=== PATIENT | female | born 1955 | race Caucasian/White ===

== ENCOUNTER 2019-11-28 08:45 | Outpatient (CLI) | payer MEDICARE, SELFPAY ==
--- NOTE | 2019-11-28 08:57 | MM_ITS ---
WS: [id number] BILATERAL SCREENING DIGITAL MAMMOGRAM WITH CAD HISTORY: SCREEN COMPARISON: 11/01/2018 and 10/30/2017 Bilateral CC and MLO views submitted. Computer aided detection analyzed. Breast composition: There are scattered areas of fibroglandular density. No suspicious masses, microc alcifications or architectural distortion. Benign calcifications within each breast are stable. MM/[place] [id number] IMPRESSION: BI-RADS: 2-Benign FOLLOW UP: 1 Year Follow-up
== END 2019-11-28 08:46 | disposition home or self-care (01) ==
LOC: RADSHAW 08:51
PROVIDERS: Family Provider Family Medicine; PCP Family Medicine; Visit Provider Family Medicine
DX: Z12.31 Encounter for screening mammogram for malignant neoplasm of breast (principal)
CPT/HCPCS: 77067

== ENCOUNTER → 2019-12-13 10:09 | Outpatient (BNVA) | payer MEDICARE, SELFPAY | PROVIDERS: Family Provider Family Medicine; PCP Family Medicine; Visit Provider Otolaryngology | DX: H61.23 Impacted cerumen, bilateral (principal); H90.0 Conductive hearing loss, bilateral; R51 Headache | CPT/HCPCS: 69210; 99214 ==

== ENCOUNTER → 2019-12-19 10:40 | Outpatient (BNVA) | payer MEDICARE, SELFPAY | PROVIDERS: Family Provider Family Medicine; PCP Family Medicine; Visit Provider Otolaryngology | DX: H61.23 Impacted cerumen, bilateral (principal); H90.0 Conductive hearing loss, bilateral; R51 Headache | CPT/HCPCS: 99212; 99214 ==

== ENCOUNTER 2020-05-21 13:37 | Outpatient (CLI) | payer MEDICARE, SELFPAY ==
--- NOTE | 2020-05-21 13:43 | XR_ITS ---
WS: [id number] SCREENING DEXA SCAN [facility] CLINICAL INFORMATION: POST MENOPAUSAL OSTEO COMPARISON: 1 FINDINGS: The L1-L4 bone mineral density measures 1.299 g/cm2. This corresponds to a T score score of 1.0 and Z score of 2.3. Left femoral neck bone mineral density measures 0.938 g/cm2. This corresponds to a T score of -0.6 an d Z score of 0.5. Right femoral neck bone mineral density measures 0.857 g/cm2. This corresponds to a T score -1.2of an d Z score of -0.1. Mean femoral neck bone mineral density measures 0.898 g/cm2. This corresponds to a T score of -0.9 an d Z score of 0.2. XR/XR DEXA axial skeleton* [id number] IMPRESSION: Osteopenia in the femoral necks. Normal bone mineralization lumbar spine. Patient's FRAX calculated 10 year probability for major osteoporotic fracture i s 10.4 % and osteoporotic hip fracture is 1.6%.
== END 2020-05-21 13:38 | disposition home or self-care (01) ==
LOC: RADWPI 13:41
PROVIDERS: Family Provider Family Medicine; PCP Family Medicine; Visit Provider Nurse Practitioner Family
DX: Z78.0 Asymptomatic menopausal state (principal); M85.89 Other specified disorders of bone density and structure, multiple sites
CPT/HCPCS: 77080

== ENCOUNTER 2020-10-24 09:35 | Outpatient (CLI) | payer MEDICARE, SELFPAY ==
--- NOTE | 2020-10-24 09:50 | US_ITS ---
WS: [id number] Complete ABDOMINAL ULTRASOUND HISTORY: EPIGASTRIC PAIN COMPARISON: 04/28/2018 Liver: 16.3 cm in length. Mildly enlarged liver. Diffuse coarsened echotexture from hepatic steatosis . Surface of the liver is slightly irregular. No bile duct dilatation. Gallbladder: Prior cholecystectomy. Pancreas: Normal size and echogenicity. CBD: 0.6 cm. Right kidney: 10.5 cm x 5.9 cm x 5.0 cm. No mass, cortical thickening or hydronephrosis. Left kidney: 10.3 cm x 4.8 cm x 4.4 cm. Normal size kidney. Hypoechoic mass in the mid kidney measur es 3.3 x 3.2 x 3.2 cm. This may be a prominent pyramid or dromedary home. Not identified on the prior study. Spleen: Normal size and echogenicity. Abdominal aorta and IVC are within normal limits. No ascites. US/US abdomen complete* [id number] IMPRESSION: 1. Prior cholecystectomy. 2. Possible solid mass mid LEFT kidney measuring 3.3 x 3.2 x 3.2 cm. Recommend follow-up CT with renal mass protocol. Neoplasm needs to be excluded. 3. Mild hepatomegaly and changes suspicious for cirrhosis.
== END 2020-10-24 09:36 | disposition home or self-care (01) ==
LOC: RAD 09:44
PROVIDERS: PCP Family Medicine; Visit Provider Nurse Practitioner Family
DX: R10.13 Epigastric pain (principal); Z90.49 Acquired absence of other specified parts of digestive tract; R16.0 Hepatomegaly, not elsewhere classified
CPT/HCPCS: 76700

== ENCOUNTER 2020-11-06 08:19 | Outpatient (CLI) | payer MEDICARE, SELFPAY ==
--- NOTE | 2020-11-06 08:38 | CT_ITS ---
WS: [id number] CT ABDOMEN NON-CONTRAST PLUS CONTRAST TECHNIQUE: Noncontrast CT of the abdomen and contrast-enhanced CT of the abdomen with coronal and sag ittal reformatted images. CLINICAL INFORMATION: RENAL MASS COMPARISON: Ultrasound October 24, 2020 DLP: 1458.[address] scans at [facility] use at least one of these dose optimization techniques: automat ed exposure control; mA and/or kV adjustment per patient size (includes targeted exams where dose is matched to clinical indication); or iterative reconstruction. FINDINGS: Normal bilateral renal parenchymal enhancement. Cortical lobulation left mid kidney likely correspond s to the ultrasound findings. No solid enhancing left renal lesions. 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 No other renal lesions. Adrenal glands are normal. Diffuse fatty infiltration liver. Cholecystectomy clips. Splenic granuloma s. Normal GE junction. Lung bases are well aerated. Calcified granuloma right middle lobe. Mild fatty atrophy of the pancreas. Aortic calcification. Ankylosis lumbar spine. Slight anterolisthesis L4 on L5. CT/CT abdomen wo/w con [id number] IMPRESSION: 1. Normal renal parenchymal enhancement. 2. Lobulation left mid kidney likely corresponds to the findings in the recent ultrasound. This appears to represent normal renal parenchyma. No suspicious l esions. 3. Adrenal glands are normal. No hydronephrosis. 4. Diffuse fatty infiltration of the liver. 5. No other significant findings.
[2020-11-06] MEDS: iohexol 300 mg/mL 100 mL Btl IV (08:56)
== END 2020-11-06 08:20 | disposition home or self-care (01) ==
LOC: RADWPI 08:25
PROVIDERS: PCP Family Medicine; Visit Provider Nurse Practitioner Family
DX: N28.89 Other specified disorders of kidney and ureter (principal); K76.0 Fatty (change of) liver, not elsewhere classified
CPT/HCPCS: 74170; Q9967

== ENCOUNTER 2021-01-14 08:47 | Outpatient (CLI) | payer MEDICARE, SELFPAY ==
--- NOTE | 2021-01-14 08:52 | MM_ITS ---
WS: [id number] BILATERAL DIGITAL SCREENING MAMMOGRAPHY WITH CAD CLINICAL INFORMATION: SCREENING HISTORY: Screening mammogram. No current complaints. COMPARISON: November 28, 2019 TECHNIQUE: Bilateral CC and MLO views. FINDINGS: Scattered fibroglandular densities bilaterally. No suspicious focal mass, asymmetry, calcifications, or architectural distortion. No evidence of malignancy. Luc[employer] centered calcifications. MM/[place] [id number] IMPRESSION: BI-RADS: 2-Benign FOLLOW UP: 1 Year Follow-up Recommend return to annual screening mammography.
== END 2021-01-14 08:48 | disposition home or self-care (01) ==
LOC: RADSHAW 08:51
PROVIDERS: PCP Family Medicine; Visit Provider Family Medicine
DX: Z12.31 Encounter for screening mammogram for malignant neoplasm of breast (principal)
CPT/HCPCS: 77067

== ENCOUNTER 2021-07-30 07:04 | Outpatient (CLI) | payer MEDICARE, SELFPAY ==
--- NOTE | 2021-07-30 07:17 | USCV_ITS ---
Caridad Yao Age: 66 Gender: F : 1955 Exam Date: 07/30/2021 07:37 Ordering Phys: Tolu Yung MD Technologist: Iraida Mcdowell Exam Location: [facility] [place]_ Indication: BLE EDEMA HISTORY: Lower extremity edema. PROCEDURES: Venous duplex imaging was performed in bilateral lower extremities. The following venous structures were evaluated: common femoral vein, profunda vein, proximal portion of the greater saphenous vein, superficial femoral vein, and the popliteal vein. In addition, the posterior tibial and peroneal trunk were evaluated. Serial compression, augmentation maneuvers, and spectral Doppler flow evaluation were performed. FINDINGS: Normal 2-D Doppler and augmentation and compressibility throughout the lower extremity venous structures. Additional imaging through the proximal calf veins also reveals no thrombus. Limited evaluation of the greater saphenous vein is patent with no thrombus. CONCLUSIONS No DVT bilateral lower extremities. Dr. Anali Ny DO (Electronically Signed) Final Date: 30 July 2021 09:48 Amended: 30 July 2021 09:48 C
== END 2021-07-30 07:05 | disposition home or self-care (01) ==
PROVIDERS: PCP Family Medicine; Visit Provider Family Medicine
DX: R60.9 Edema, unspecified (principal)
CPT/HCPCS: 93970

== ENCOUNTER → 2021-11-26 10:44 | Outpatient (BNVA) | payer MEDICARE, SELFPAY | PROVIDERS: PCP Family Medicine; Visit Provider Family Medicine | DX: E78.5 Hyperlipidemia, unspecified (principal); E11.649 Type 2 diabetes mellitus with hypoglycemia without coma; Z79.4 Long term (current) use of insulin; I10 Essential (primary) hypertension | CPT/HCPCS: 80053; 80061; 82043; 83036; 85025 ==

== ENCOUNTER 2022-02-17 08:36 | Outpatient (CLI) | payer MEDICARE, SELFPAY ==
--- NOTE | 2022-02-17 08:46 | MM_ITS ---
WS: [id number] BILATERAL SCREENING DIGITAL BREAST TOMOSYNTHESIS MAMMOGRAM WITH CAD HISTORY: SCREENING COMPARISON: 01/14/2021, 11/28/2019 Bilateral CC and MLO views with tomosynthesis and synthetic mammography submitted. Computer aided det ection analyzed. Breast composition: There are scattered areas of fibroglandular density. No suspicious masses, microc alcifications or architectural distortion. Benign calcifications in each breast. MM/[place] [id number] IMPRESSION: BI-RADS: 2-Benign FOLLOW UP: 1 Year Follow-up
== END 2022-02-17 08:37 | disposition home or self-care (01) ==
LOC: RAD 08:39
PROVIDERS: PCP Family Medicine; Visit Provider Family Medicine
DX: Z12.31 Encounter for screening mammogram for malignant neoplasm of breast (principal)
CPT/HCPCS: 77063; 77067

== ENCOUNTER → 2022-02-25 09:17 | Outpatient (BNVA) | payer MEDICARE, SELFPAY | PROVIDERS: PCP Family Medicine; Visit Provider Family Medicine | DX: E11.649 Type 2 diabetes mellitus with hypoglycemia without coma (principal); Z79.4 Long term (current) use of insulin; J30.2 Other seasonal allergic rhinitis | CPT/HCPCS: 80053; 83036 ==

== ENCOUNTER → 2022-05-19 09:05 | Outpatient (BNVA) | payer MEDICARE, SELFPAY | PROVIDERS: PCP Family Medicine; Visit Provider Family Medicine | DX: Z00.00 Encounter for general adult medical examination without abnormal findings (principal); Z13.6 Encounter for screening for cardiovascular disorders; Z78.0 Asymptomatic menopausal state; E11.9 Type 2 diabetes mellitus without complications; I10 Essential (primary) hypertension; E78.5 Hyperlipidemia, unspecified | CPT/HCPCS: 80053; 80061; 83036; 84443; 85025 ==

== ENCOUNTER 2022-07-15 13:12 | Outpatient (CLI) | payer MEDICARE, SELFPAY ==
--- NOTE | 2022-07-15 14:00 | XR_ITS ---
WS: [id number] DEXA (DUAL ENERGY X-RAY ABSORPTIOMETRY) Bone mineral density was performed using a [employer] machine. HISTORY: post-menopausal COMPARISON: 05/21/2020 Lumbar spine BMD (L1-L4): 1.276 g/cm2 T score: 0.8 Z score: 2.2 Total hip BMD: Left: 0.910 g/cm2. T score: -0.8 Z score: 0.4 Right: 0.587 g/cm2. T score: -3.3 Z score: -2.2 10 year probability of a major osteoporotic fracture is 11.2%. Compared to the prior study from 05/21/2020. Lumbar spine bone mineral density has decreased by 1.8%. Bilateral hips bone mineral density has decreased by 3.0%. XR/XR DEXA axial skeleton* [id number] IMPRESSION: OSTEOPOROSIS based upon the WHO classification for females. Significant decrease in bone mineral density within the hips since the prior st y. No significant change in the lumbar spine.
== END 2022-07-15 13:13 | disposition home or self-care (01) ==
LOC: RAD 13:12
PROVIDERS: PCP Family Medicine; Visit Provider Family Medicine
DX: Z78.0 Asymptomatic menopausal state (principal); M81.0 Age-related osteoporosis without current pathological fracture
CPT/HCPCS: 77080

== ENCOUNTER → 2022-08-25 10:37 | Outpatient (BNVA) | payer MEDICARE, SELFPAY | PROVIDERS: PCP Family Medicine; Visit Provider Family Medicine | DX: E11.649 Type 2 diabetes mellitus with hypoglycemia without coma (principal); Z79.4 Long term (current) use of insulin; L30.4 Erythema intertrigo; Z23 Encounter for immunization | CPT/HCPCS: 83036 ==

== ENCOUNTER → 2022-10-09 13:42 | Outpatient (BNVA) | payer OTHER, SELFPAY | PROVIDERS: PCP Family Medicine; Referring Provider Family Medicine; Visit Provider Internal Medicine | DX: E11.649 Type 2 diabetes mellitus with hypoglycemia without coma (principal); Z79.4 Long term (current) use of insulin; E78.5 Hyperlipidemia, unspecified | CPT/HCPCS: 36415; 80048; 80053; 80061; 82044; 84681; 86337; 86341 ==

== ENCOUNTER → 2022-11-24 08:58 | Outpatient (BNVA) | payer OTHER, SELFPAY | PROVIDERS: PCP Family Medicine; Visit Provider Family Medicine | DX: E11.649 Type 2 diabetes mellitus with hypoglycemia without coma (principal); Z79.4 Long term (current) use of insulin | CPT/HCPCS: 83036 ==

== ENCOUNTER → 2023-05-05 14:32 | Outpatient (BNVA) | payer MEDICARE, SELFPAY | PROVIDERS: PCP Family Medicine; Visit Provider Internal Medicine | DX: E11.649 Type 2 diabetes mellitus with hypoglycemia without coma (principal); E78.5 Hyperlipidemia, unspecified; Z79.4 Long term (current) use of insulin; Z79.84 Long term (current) use of oral hypoglycemic drugs | CPT/HCPCS: 36415; 80053; 80061; 82044; 83036; 99214 ==

== ENCOUNTER 2023-05-06 09:55 | Outpatient (CLI) | payer MEDICARE, SELFPAY ==
--- NOTE | 2023-05-06 10:09 | MM_ITS ---
WS: [id number] Bilateral screening 3D tomosynthesis digital mammogram, 05/06/2023 Clinical Data: screening mammogram Comparison: 2021, 01/14/2021, 11/28/2019, 11/01/2018, 10/30/2017, 10/11/2015. Findings: The breast parenchymal pattern shows fibroglandular tissue. No spiculated masses or clustered calcifi cations are seen. There are no secondary signs of carcinoma. MM/[place] [id number] Impression: 1. Negative bilateral mammogram unchanged. 2. Recommend annual screening mammograms. BIRADS: 1-Negative FOLLOW UP: 1 Year Follow-up The CAD tool design checker was used.
== END 2023-05-06 09:56 | disposition home or self-care (01) ==
PROVIDERS: PCP Family Medicine; Visit Provider Family Medicine
DX: Z12.31 Encounter for screening mammogram for malignant neoplasm of breast (principal)
CPT/HCPCS: 77063; 77067

== ENCOUNTER 2023-07-29 09:15 | Outpatient (CLI) | payer MEDICARE, SELFPAY ==
[2023-07-29 10:31] LABS: Alanine Aminotransferase 21 U/L (0-33); Albumin Level 4.1 g/dL (3.5-5.2); Alkaline Phosphatase 116 U/L (35-105); Anion Gap 14.8 (5-19); Aspartate Amino Transferase 23 U/L (0-32); Blood Urea Nitrogen 11 mg/dL (8-23); Calcium 9.3 mg/dL (8.5-10.5); Carbon Dioxide 26 mmol/L (22-29); Chloride 100 mmol/L (98-107); Chol HDL Ratio 1.91 mg/dL (0.0-4.40); Cholesterol 88 mg/dL (0-200); Globulin 2.3 g/dL (1.3-4.6); Glomerular Filtration Rate 99.1 mL/min (90-130); Glucose 232 mg/dL (65-115); HDL Cholesterol 46 mg/dL (60-100); LDL Cholesterol Calculated 30 mg/dL (50-129); LDL HDL Ratio 0.65 RATIO (0.00-3.22); Osmolality Calculated 289 mOsm/kg (285-295); Potassium 4.8 mmol/L (3.5-5.1); Sodium 136 mmol/L (136-145); Total Bilirubin 0.4 mg/dL (0.15-1.2); Total Protein 6.4 g/dL (6.6-8.7); Triglycerides 60 mg/dL (0-150)
[2023-07-29 10:56] LABS: Estmated Average Glucose 174; Hemoglobin A1C 7.7 % (4.0-6.0)
== END 2023-07-29 09:16 | disposition home or self-care (01) ==
LOC: LAB 09:18
PROVIDERS: PCP Family Medicine; Visit Provider Internal Medicine
DX: E11.649 Type 2 diabetes mellitus with hypoglycemia without coma (principal); E78.5 Hyperlipidemia, unspecified
CPT/HCPCS: 36415; 80053; 80061; 83036

== ENCOUNTER → 2023-08-06 08:17 | Outpatient (BNVA) | payer MEDICARE, SELFPAY | PROVIDERS: PCP Family Medicine; Visit Provider Internal Medicine | DX: E11.649 Type 2 diabetes mellitus with hypoglycemia without coma (principal); E78.5 Hyperlipidemia, unspecified; Z79.4 Long term (current) use of insulin; Z79.84 Long term (current) use of oral hypoglycemic drugs | CPT/HCPCS: 82044; 99214 ==

== ENCOUNTER → 2023-09-01 09:12 | Outpatient (BNVA) | payer MEDICARE, SELFPAY | PROVIDERS: PCP Family Medicine; Referring Provider Family Medicine; Visit Provider Surgery | DX: Z12.11 Encounter for screening for malignant neoplasm of colon (principal) | CPT/HCPCS: 99024; 99204 ==

== ENCOUNTER 2023-11-19 09:47 | Outpatient (CLI) | payer MEDICARE, SELFPAY ==
[2023-11-19 11:08] LABS: Alanine Aminotransferase 38 U/L (0-33); Albumin Level 3.9 g/dL (3.5-5.2); Alkaline Phosphatase 140 U/L (35-105); Aspartate Amino Transferase 31 U/L (0-32); Blood Urea Nitrogen 13 mg/dL (8-23); Calcium 8.6 mg/dL (8.5-10.5); Carbon Dioxide 28 mmol/L (22-29); Chloride 101 mmol/L (98-107); Chol HDL Ratio 2.34 mg/dL (0.0-4.40); Cholesterol 110 mg/dL (0-200); Globulin 2.6 g/dL (1.3-4.6); Glomerular Filtration Rate 99.1 mL/min (90-130); Glucose 216 mg/dL (65-115); HDL Cholesterol 47 mg/dL (60-100); LDL Cholesterol Calculated 54 mg/dL (50-129); LDL HDL Ratio 1.15 RATIO (0.00-3.22); Osmolality Calculated 293 mOsm/kg (285-295); Sodium 138 mmol/L (136-145); Total Bilirubin 0.5 mg/dL (0.15-1.2); Total Protein 6.5 g/dL (6.6-8.7); Triglycerides 47 mg/dL (0-150)
[2023-11-19 11:14] LABS: Estmated Average Glucose 214; Hemoglobin A1C 9.1 % (4.0-6.0)
[2023-11-19 11:18] LABS: Creatinine Urine, Random 26 mg/dL (28-217); Microalbum Creatinine Ratio Ur 38 mg/dL (0-20); Microalbumin Random Urine 1 ug/dL (0-20)
== END 2023-11-19 09:48 | disposition home or self-care (01) ==
LOC: LAB 09:51
PROVIDERS: PCP Family Medicine; Visit Provider Internal Medicine
DX: E11.649 Type 2 diabetes mellitus with hypoglycemia without coma (principal); Z79.4 Long term (current) use of insulin; E78.5 Hyperlipidemia, unspecified
CPT/HCPCS: 36415; 80053; 80061; 82044; 83036

== ENCOUNTER → 2023-12-02 08:50 | Outpatient (BNVA) | payer MEDICARE, SELFPAY | PROVIDERS: PCP Family Medicine; Visit Provider Internal Medicine | DX: E11.649 Type 2 diabetes mellitus with hypoglycemia without coma (principal); Z79.4 Long term (current) use of insulin; E78.5 Hyperlipidemia, unspecified; Z09 Encounter for follow-up examination after completed treatment for conditions other than malignant neoplasm | CPT/HCPCS: 99213; 99214 ==

== ENCOUNTER → 2023-12-22 09:46 | Outpatient (BNVA) | payer MEDICARE, SELFPAY | PROVIDERS: PCP Family Medicine; Visit Provider Family Medicine | DX: I10 Essential (primary) hypertension (principal); Z13.6 Encounter for screening for cardiovascular disorders | CPT/HCPCS: 85025 ==

== ENCOUNTER → 2023-12-29 08:35 | Outpatient (BNVA) | payer MEDICARE, SELFPAY | PROVIDERS: PCP Family Medicine; Visit Provider Family Medicine | DX: R79.89 Other specified abnormal findings of blood chemistry (principal) | CPT/HCPCS: 83550 ==

== ENCOUNTER → 2023-12-30 | Outpatient (BNVA) | payer MEDICARE, SELFPAY | PROVIDERS: PCP Family Medicine; Visit Provider Family Medicine | DX: R79.89 Other specified abnormal findings of blood chemistry (principal) | CPT/HCPCS: 82728 ==

== ENCOUNTER 2024-01-27 09:21 | Outpatient (RCR) | payer MEDICARE, SELFPAY | END 2024-02-02 23:59 | disposition home or self-care (01) | LOC: SPT 09:21 | PROVIDERS: PCP Family Medicine; Visit Provider Family Medicine | DX: R26.89 Other abnormalities of gait and mobility (principal); M62.81 Muscle weakness (generalized) | CPT/HCPCS: 97161 ==

== ENCOUNTER 2024-02-03 10:05 | Outpatient (RCR) | payer MEDICARE, SELFPAY | END 2024-03-04 23:59 | disposition home or self-care (01) | LOC: SPT 10:05 | PROVIDERS: PCP Family Medicine; Visit Provider Family Medicine | DX: R26.89 Other abnormalities of gait and mobility (principal) | CPT/HCPCS: 97110 ==

== ENCOUNTER 2024-02-25 10:23 | Outpatient (CLI) | payer MEDICARE, SELFPAY | END 2024-02-25 10:24 | disposition home or self-care (01) | LOC: LAB 06-16 10:10 | PROVIDERS: PCP Family Medicine; Visit Provider Family Medicine | DX: E11.649 Type 2 diabetes mellitus with hypoglycemia without coma (principal); E78.5 Hyperlipidemia, unspecified; Z79.4 Long term (current) use of insulin | CPT/HCPCS: 80053; 80061; 82044; 83036 ==

== ENCOUNTER → 2024-03-01 08:58 | Outpatient (BNVA) | payer MEDICARE, SELFPAY | PROVIDERS: PCP Family Medicine; Visit Provider Internal Medicine | DX: E11.649 Type 2 diabetes mellitus with hypoglycemia without coma (principal); Z79.4 Long term (current) use of insulin; E78.5 Hyperlipidemia, unspecified | CPT/HCPCS: 99215 ==

== ENCOUNTER 2024-03-05 06:00 | Outpatient (RCR) | payer MEDICARE, SELFPAY | END 2024-04-03 23:59 | disposition home or self-care (01) | LOC: SPT 06:00 | PROVIDERS: PCP Family Medicine; Visit Provider Family Medicine | DX: R26.89 Other abnormalities of gait and mobility (principal); M62.81 Muscle weakness (generalized) | CPT/HCPCS: 97110 ==

== ENCOUNTER 2024-04-04 06:00 | Outpatient (RCR) | payer MEDICARE, SELFPAY | END 2024-04-06 23:59 | disposition home or self-care (01) | LOC: SPT 06:00 | PROVIDERS: PCP Family Medicine; Visit Provider Family Medicine | DX: R26.89 Other abnormalities of gait and mobility (principal) | CPT/HCPCS: 97110 ==

== ENCOUNTER → 2024-04-19 10:55 | Outpatient (BNVA) | payer MEDICARE, SELFPAY | PROVIDERS: PCP Family Medicine; Visit Provider Podiatrist Foot & Ankle Surgery | DX: E11.8 Type 2 diabetes mellitus with unspecified complications (principal); Z79.4 Long term (current) use of insulin; L60.8 Other nail disorders | CPT/HCPCS: 99203 ==

== ENCOUNTER 2024-05-26 09:24 | Outpatient (CLI) | payer MEDICARE, SELFPAY ==
[2024-05-26 10:16] LABS: Alanine Aminotransferase 28 U/L (0-33); Albumin Level 4.2 g/dL (3.5-5.2); Alkaline Phosphatase 120 U/L (35-105); Anion Gap 13.3 (5-19); Aspartate Amino Transferase 24 U/L (0-32); Blood Urea Nitrogen 25 mg/dL (8-23); Calcium 9.1 mg/dL (8.5-10.5); Carbon Dioxide 30 mmol/L (22-29); Chloride 101 mmol/L (98-107); Chol HDL Ratio 2.26 mg/dL (0.0-4.40); Cholesterol 106 mg/dL (0-200); Globulin 2.4 g/dL (1.3-4.6); Glomerular Filtration Rate 98.8 mL/min (90-130); Glucose 212 mg/dL (65-115); HDL Cholesterol 47 mg/dL (60-100); LDL Cholesterol Calculated 43 mg/dL (50-129); LDL HDL Ratio 0.91 RATIO (0.00-3.22); Osmolality Calculated 301 mOsm/kg (285-295); Potassium 4.3 mmol/L (3.5-5.1); Sodium 140 mmol/L (136-145); Total Bilirubin 0.5 mg/dL (0.15-1.2); Total Protein 6.6 g/dL (6.6-8.7); Triglycerides 79 mg/dL (0-150)
[2024-05-26 10:20] LABS: Creatinine Urine, Random 43 mg/dL (28-217); Microalbum Creatinine Ratio Ur 23 mg/dL (0-20); Microalbumin Random Urine 1 ug/dL (0-20)
[2024-05-26 10:22] LABS: Estmated Average Glucose 180; Hemoglobin A1C 7.9 % (4.0-6.0)
== END 2024-05-26 09:25 | disposition home or self-care (01) ==
LOC: LAB 09:31
PROVIDERS: Absent Provider Internal Medicine; PCP Family Medicine; Visit Provider Internal Medicine
DX: Z79.4 Long term (current) use of insulin (principal); E11.649 Type 2 diabetes mellitus with hypoglycemia without coma; E78.5 Hyperlipidemia, unspecified
CPT/HCPCS: 36415; 80053; 80061; 82044; 83036

== ENCOUNTER → 2024-06-01 09:44 | Outpatient (BNVA) | payer MEDICARE, SELFPAY | PROVIDERS: PCP Family Medicine; Visit Provider Internal Medicine | DX: E11.649 Type 2 diabetes mellitus with hypoglycemia without coma (principal); Z79.4 Long term (current) use of insulin; E78.5 Hyperlipidemia, unspecified; Z79.84 Long term (current) use of oral hypoglycemic drugs | CPT/HCPCS: 99214 ==

== ENCOUNTER 2024-06-05 06:00 | Outpatient (RCR) | payer MEDICARE, SELFPAY | END 2024-07-04 23:59 | disposition home or self-care (01) | LOC: SPT 06:00 | PROVIDERS: PCP Family Medicine; Visit Provider Family Medicine | DX: R26.89 Other abnormalities of gait and mobility (principal) | CPT/HCPCS: 97110; 97112; 97161 ==

== ENCOUNTER 2024-07-05 06:00 | Outpatient (RCR) | payer MEDICARE, SELFPAY | END 2024-08-04 23:59 | disposition home or self-care (01) | LOC: SPT 06:00 | PROVIDERS: PCP Family Medicine; Visit Provider Family Medicine | DX: R26.89 Other abnormalities of gait and mobility (principal) | CPT/HCPCS: 97110; 97112; 97164 ==

== ENCOUNTER → 2024-07-27 11:50 | Outpatient (BNVA) | payer MEDICARE, SELFPAY | PROVIDERS: PCP Family Medicine; Visit Provider Family Medicine | DX: R60.0 Localized edema (principal) | CPT/HCPCS: 80053 ==

== ENCOUNTER 2024-08-05 06:00 | Outpatient (RCR) | payer MEDICARE, SELFPAY | END 2024-08-26 23:59 | disposition home or self-care (01) | LOC: SPT 06:00 | PROVIDERS: PCP Family Medicine; Visit Provider Family Medicine | DX: R26.89 Other abnormalities of gait and mobility (principal) | CPT/HCPCS: 97110; 97116 ==

== ENCOUNTER → 2024-08-24 13:10 | Outpatient (BNVA) | payer MEDICARE, SELFPAY | PROVIDERS: PCP Family Medicine; Visit Provider Podiatrist Foot & Ankle Surgery | DX: L60.3 Nail dystrophy (principal); G62.9 Polyneuropathy, unspecified; L84 Corns and callosities; E11.42 Type 2 diabetes mellitus with diabetic polyneuropathy; Z79.4 Long term (current) use of insulin | CPT/HCPCS: 11056; 11721 ==

== ENCOUNTER 2024-09-26 10:50 | Outpatient (CLI) | payer MEDICARE, SELFPAY ==
[2024-09-26 11:32] LABS: Estmated Average Glucose 157; Hemoglobin A1C 7.1 % (4.0-6.0)
[2024-09-26 11:38] LABS: Alanine Aminotransferase 41 U/L (0-33); Albumin Level 3.7 g/dL (3.5-5.2); Alkaline Phosphatase 109 U/L (35-105); Anion Gap 10.3 (5-19); Aspartate Amino Transferase 43 U/L (0-32); Blood Urea Nitrogen 12 mg/dL (8-23); Calcium 8.6 mg/dL (8.5-10.5); Carbon Dioxide 30 mmol/L (22-29); Chloride 107 mmol/L (98-107); Chol HDL Ratio 2.19 mg/dL (0.0-4.40); Cholesterol 94 mg/dL (0-200); Globulin 2.4 g/dL (1.3-4.6); Glomerular Filtration Rate 98.8 mL/min (90-130); Glucose 175 mg/dL (65-115); HDL Cholesterol 43 mg/dL (60-100); LDL Cholesterol Calculated 32 mg/dL (50-129); LDL HDL Ratio 0.74 RATIO (0.00-3.22); Osmolality Calculated 302 mOsm/kg (285-295); Potassium 3.3 mmol/L (3.5-5.1); Sodium 144 mmol/L (136-145); Total Bilirubin 0.4 mg/dL (0.15-1.2); Total Protein 6.1 g/dL (6.6-8.7); Triglycerides 94 mg/dL (0-150)
[2024-09-26 11:48] LABS: Creatinine Urine, Random 100 mg/dL (28-217); Microalbum Creatinine Ratio Ur 20 mg/dL (0-20); Microalbumin Random Urine 2 ug/dL (0-20)
[2024-09-27 09:34] LABS: C-Peptide 1.26 ng/mL (0.80-3.85)
== END 2024-09-26 10:51 | disposition home or self-care (01) ==
LOC: LAB 10:51
PROVIDERS: PCP Family Medicine; Visit Provider Internal Medicine
DX: E11.649 Type 2 diabetes mellitus with hypoglycemia without coma (principal); Z79.4 Long term (current) use of insulin; E78.5 Hyperlipidemia, unspecified
CPT/HCPCS: 36415; 80053; 80061; 82044; 83036; 84681

== ENCOUNTER → 2024-10-13 12:22 | Outpatient (BNVA) | payer MEDICARE, SELFPAY | PROVIDERS: PCP Family Medicine; Visit Provider Internal Medicine | DX: E11.649 Type 2 diabetes mellitus with hypoglycemia without coma (principal); Z79.4 Long term (current) use of insulin; E78.5 Hyperlipidemia, unspecified | CPT/HCPCS: 99214 ==

== ENCOUNTER → 2024-10-25 12:42 | Outpatient (BNVA) | payer MEDICARE, SELFPAY | PROVIDERS: PCP Family Medicine; Visit Provider Podiatrist Foot & Ankle Surgery | DX: L60.3 Nail dystrophy (principal); G62.9 Polyneuropathy, unspecified; L84 Corns and callosities; E11.42 Type 2 diabetes mellitus with diabetic polyneuropathy; E11.621 Type 2 diabetes mellitus with foot ulcer; L97.522 Non-pressure chronic ulcer of other part of left foot with fat layer exposed; Z79.4 Long term (current) use of insulin | CPT/HCPCS: 11056; 11721; 99213 ==

== ENCOUNTER → 2024-10-27 11:20 | Outpatient (BNVA) | payer MEDICARE, SELFPAY | PROVIDERS: PCP Family Medicine; Visit Provider Family Medicine | DX: D50.9 Iron deficiency anemia, unspecified (principal); F33.42 Major depressive disorder, recurrent, in full remission; I10 Essential (primary) hypertension; E78.5 Hyperlipidemia, unspecified; E11.9 Type 2 diabetes mellitus without complications; R26.81 Unsteadiness on feet; R60.0 Localized edema; I87.2 Venous insufficiency (chronic) (peripheral); E87.6 Hypokalemia | CPT/HCPCS: 82728; 83550; 85025 ==

== ENCOUNTER → 2024-11-02 13:21 | Outpatient (BNVA) | payer MEDICARE, SELFPAY | PROVIDERS: PCP Family Medicine; Visit Provider Podiatrist Foot & Ankle Surgery | DX: I73.9 Peripheral vascular disease, unspecified (principal); R60.0 Localized edema; E11.8 Type 2 diabetes mellitus with unspecified complications; L60.3 Nail dystrophy; E11.9 Type 2 diabetes mellitus without complications; G62.9 Polyneuropathy, unspecified; L84 Corns and callosities; E11.621 Type 2 diabetes mellitus with foot ulcer; L97.502 Non-pressure chronic ulcer of other part of unspecified foot with fat layer exposed; E11.42 Type 2 diabetes mellitus with diabetic polyneuropathy; L97.522 Non-pressure chronic ulcer of other part of left foot with fat layer exposed; Z79.4 Long term (current) use of insulin | CPT/HCPCS: 99213 ==

== ENCOUNTER → 2024-11-14 12:06 | Outpatient (BNVA) | payer MEDICARE, SELFPAY | PROVIDERS: PCP Family Medicine; Visit Provider Podiatrist Foot & Ankle Surgery | DX: M20.42 Other hammer toe(s) (acquired), left foot (principal); L60.3 Nail dystrophy; G62.9 Polyneuropathy, unspecified; L84 Corns and callosities; E11.42 Type 2 diabetes mellitus with diabetic polyneuropathy; E11.621 Type 2 diabetes mellitus with foot ulcer; L97.522 Non-pressure chronic ulcer of other part of left foot with fat layer exposed; Z79.4 Long term (current) use of insulin | CPT/HCPCS: 28011 ==

== ENCOUNTER → 2024-11-17 15:40 | Outpatient (BNVA) | payer MEDICARE, SELFPAY | PROVIDERS: PCP Family Medicine; Visit Provider Podiatrist Foot & Ankle Surgery | DX: M20.42 Other hammer toe(s) (acquired), left foot (principal); L60.3 Nail dystrophy; G62.9 Polyneuropathy, unspecified; L84 Corns and callosities; E11.42 Type 2 diabetes mellitus with diabetic polyneuropathy; Z79.4 Long term (current) use of insulin | CPT/HCPCS: 28011 ==

== ENCOUNTER 2024-11-20 12:06 | Observation (INO) | payer MEDICARE, SELFPAY ==
[2024-11-20] VITALS (13 sets, daily range): BP systolic 122–153; BP diastolic 58–100; PULSE 77–86; RESP 13–19; TEMP 36.8; O2SAT 96–100; BMI 26.7; BMI 27.3
--- NOTE | 2024-11-20 13:27 | CTR_ITS ---
PROCEDURE INFORMATION: Exam: CT Cervical Spine Without Contrast Exam date and time: 11/20/2024 2:14 PM Age: 69 years old Clinical indication: Injury or trauma; Fall; Blunt trauma TECHNIQUE: Imaging protocol: Computed tomography of the cervical spine without contrast. Radiation optimization: All CT scans at this facility use at least one of these dose optimization techniques: automated exposure control; mA and/or kV adjustment per patient size (includes targeted exams where dose is matched to clinical indication); or iterative reconstruction. COMPARISON: CT head wo con* [id number] 11/20/2024 2:14 PM RADIATION DOSE METRICS: Total DLP (mGy-cm): 214.5 FINDINGS: Bones: CPPD changes around the dens. There are ossific densities in the ligamentum nuchae, consistent with remote trauma. Demineralization of the visualized bones, limiting sensitivity for nondisplaced fractures. Mild anterolisthesis of C6 over C7. The cervical spine demonstrates mild degenerative changes at multiple levels. No compression deformity. No acute fracture. Lungs: Lung apices are normal. Thyroid: Calcified left thyroid nodule measuring 2 mm. Vasculature: Calcified atheromas of the visualized arteries. Soft tissues: Unremarkable. CT/CT cervical spin wo con* [id number] IMPRESSION: No acute posttraumatic changes in the cervical spine. COMMENTS: Consistent with the [employer]'s Incidental Findings Committee white paper (J Am Xu Radiol 2015): In patients aged 35 years and older with an incidental thyroid nodule equal to or greater than 1.[address], MRI or extrathyroidal US, further evaluation with dedicated thyroid US is recommended for patients with normal life expectancy and without comorbidities. For smaller nodules without suspicious features, no further evaluation or follow up is recommended.
--- NOTE | 2024-11-20 13:27 | CTR_ITS ---
PROCEDURE INFORMATION: Exam: CT Head Without Contrast Exam date and time: 11/20/2024 2:14 PM Age: 69 years old Clinical indication: Injury or trauma; Fall; Blunt trauma (contusions or hematomas) TECHNIQUE: Imaging protocol: Computed tomography of the head without contrast. Radiation optimization: All CT scans at this facility use at least one of these dose optimization techniques: automated exposure control; mA and/or kV adjustment per patient size (includes targeted exams where dose is matched to clinical indication); or iterative reconstruction. COMPARISON: CT cervical spin wo con* [id number] 11/20/2024 2:14 PM RADIATION DOSE METRICS: Total DLP (mGy-cm): 1174.2 FINDINGS: Brain: Normal. No hemorrhage. Unremarkable white matter. No mass effect. Cerebral ventricles: No ventriculomegaly. Paranasal sinuses: Visualized sinuses are unremarkable. No fluid levels. Mastoid air cells: Visualized mastoid air cells are well aerated. Orbital cavities: Post bilateral cataract surgery. Bones: Unremarkable. No acute fracture. Soft tissues: Unremarkable. CT/CT head wo con* [id number] IMPRESSION: No large territorial infarct or intracranial bleed.
--- NOTE | 2024-11-20 13:27 | XRR_ITS ---
PROCEDURE INFORMATION: Exam: XR Chest Exam date and time: 11/20/2024 2:26 PM Age: 69 years old Clinical indication: Other: Dizziness, gen weakness TECHNIQUE: Imaging protocol: Radiologic exam of the chest. Views: 2 views. COMPARISON: CT chest wo con [id number] 09/06/2019 1:40 PM FINDINGS: Lungs: Calcified granulomas in the right lower lung zone. There is no evidence of focal pulmonary consolidation. Pleural spaces: Unremarkable. No pleural effusion. No pneumothorax. Heart/Mediastinum: Unremarkable. No cardiomegaly. Bones/joints: Calcifications surrounding the left humeral head suggestive of chondrocalcinosis. The thoracic spine demonstrates mild degenerative changes at multiple levels. XR/XR chest 2V* [id number] IMPRESSION: No acute cardiopulmonary process.
--- NOTE | 2024-11-20 13:29 | ECG_ITS ---
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 Measurements Intervals [place] Rate: 83 P: 76 MT: 166 QRS: 40 QRSD: 83 T: 70 QT: 374 QTc: 441 Interpretive Statements SINUS RHYTHM NONSPECIFIC ST & T-WAVE ABNORMALITY No previous ECG available for comparison Electronically Signed On 11-20-2024 18:48:39 PHONE ENGINEER by Shi Johnson M.D. [email or web address]
--- NOTE | 2024-11-20 13:58 | W.ED.NAVMDI ---
HPI - Nausea/Vomiting/Diarrhea General: Chief complaint: Nausea/Vomiting/Diarrhea Stated complaint: Dizzy, Weak Time Seen by Provider: 11/20/24 13:01 History of Present Illness: Patient is a 69-year-old female that presents to the emergency department with generalized weakness, dizziness, nausea vomiting diarrhea. Patient reports she has had diarrhea for the last 2 months. She describes it as black and profuse. Patient reports some abdominal pain. She has had numerous falls in recent weeks. She has been seen by primary care couple times. Despite this patient's decline progresses. She denies chest pain or shortness of breath She denies fever or chills. She reports abdominal discomfort, nausea vomiting and diarrhea. Patient is unsure if she struck her head during her last fall. Her reports that she tripped over firewood causing her to fall. Associated nausea: Yes Associated symtoms: Reports bloating, fatigue, malaise and nausea; Denies chest pain, diaphoresis, dizziness or palpitations Related Data Home Medications ?Medication ?Instructions ?Recorded ?Confirmed ferrous gluconate 236 mg (27 mg 236 mg PO DAILY 07/27/24 11/20/24 iron) tablet acarbose 100 mg tablet 100 mg PO TID 11/20/24 11/20/24 alendronate 70 mg tablet 70 mg PO Q7D 11/20/24 11/20/24 atorvastatin 80 mg tablet 80 mg PO BEDTIME 11/20/24 11/20/24 glipizide 5 mg tablet 5 mg PO TID PRN bs 11/20/24 11/20/24 insulin glargine 100 unit/mL (3 See Rx Instructions .Route .COMPLEX 11/20/24 11/20/24 mL) subcutaneous pen (Lantus Solostar U-100 Insulin) vitamin A-vitamin C-vit E-min 1 tab PO DAILY 11/20/24 11/20/24 tablet (Ocutabs tablet) Previous Rx's ?Medication ?Instructions ?Recorded flash glucose scanning reader #9 ea 01/09/23 (FreeStyle Jam 2 Brandon) potassium chloride 10 mEq 10 meq PO DAILY #90 tabs 07/28/24 tablet,extended release torsemide 20 mg tablet 20 mg PO QAM #90 tabs 07/28/24 Diabetic Shoes #1 ea 08/24/24 pantoprazole 40 mg tablet,delayed 40 mg PO DAILY #90 tabs 09/09/24 release lisinopril 10 mg tablet 10 mg PO DAILY #60 tabs 09/23/24 bupropion HCl 150 mg 24 hr tablet, 150 mg PO QAM #90 tabs 09/27/24 extended release (Wellbutrin XL) flash glucose sensor (FreeStyle #3 ea 11/07/24 Jam 2 Sensor kit) Allergies Allergy/AdvReac Type Severity Reaction Status Date / Time No Known Allergies Allergy Verified 11/17/24 15:53 Review of Systems Const: Reports: change in appetite, fatigue and malaise; Denies: fever(s), chills, body aches or diaphoresis Eyes: Denies: blurry vision or blind spots Card: Reports: edema, swelling of feet/ankles and lightheadedness; Denies: chest pain, palpitations or irregular heart rhythm Resp: Denies: dyspnea or productive cough GI: Reports: nausea, vomiting, diarrhea, bloating, GI cramping, change in bowel habits and melena; Denies: hematemesis : Denies: flank pain or difficulty voiding Musc: Reports: extremity pain (Toe pain, right arm pain) Skin/Breast: Reports: erythema and other (Wounds in different stages of healing) Neuro: Denies: dizziness, Slurred speech present or difficulty communicating thoughts Jordan/Lymph: Denies: easy bruising or easy bleeding PFSH ED PFSH: Medical History PRASAD (iron deficiency anemia) Venous stasis dermatitis Osteoporosis GERD (gastroesophageal reflux disease) Osteoarthritis Depression Dyslipidemia Type II diabetes mellitus with hypoglycemia HTN (hypertension) Facial pain Hearing loss Cerumen impaction Surgical History H/O colonoscopy History of hysterectomy H/O knee surgery Hx laparoscopic cholecystectomy H/O foot surgery H/O eye surgery Bilateral cataracts Family History Father Cancer Mother Cancer Other Diabetes Social History Smoking and tobacco/nicotine status: former use of tobacco/nicotine Quit status (tobacco/nicotine): has quit using Year quit tobacco: 2014 Alcohol intake: current Alcohol type: beer Physical Exam Const: COMMON NORMALS: no acute distress, patient oriented x3 and alert GENERAL APPEARANCE: cooperative ORIENTATION/CONSCIOUSNESS: Yes awake, Yes oriented to person, Yes oriented to place and Yes oriented to time HENMT: COMMON NORMALS: normocephalic and atraumatic HEAD & SCALP: normocephalic and atraumatic FACE & SINUS: normal facial exam MOUTH: Normal oral and palatal mucosa present Eye: COMMON NORMALS: Equal, round and reactive pupils present, EOMs intact bilaterally, conjunctivae normal and no scleral icterus GENERAL EYE: appearance normal, both eyes and all related structures ALIGNMENT: Yes alignment normal PERIORBITAL: periorbital findings normal CONJUNCTIVA: Yes conjunctivae normal PUPIL: Yes Equal, round and reactive pupils present Neck/C-Spine: COMMON NORMALS: full ROM GENERAL: Yes normal visual inspection Lymph: LYMPHATIC: no lymphadenopathy noted Chest: COMMONS NORMALS: normal inspection of the chest Breast/axilla inspection: Yes no chest deformity, asymmetry, normal contours, no nodules, masses, tenderness Resp: COMMON NORMALS: normal respiratory effort, No retractions, No use of accessory muscles and clear to auscultation bilaterally EFFORT & INSPECTION: Yes able to speak in complete sentences and Yes symmetric chest movement AUSCULTATION: clear to auscultation bilaterally Cardio: COMMON NORMALS: regular rate, regular rhythm and Peripheral pulses 2+ throughout RATE: regular rate RHYTHM: regular rhythm PERIPHERAL PULSES: Peripheral pulses 2+ throughout GI: COMMON NORMALS: Normal to inspection, nondistended, normoactive bowel sounds present, Soft to palpation, non-tender and No hepatosplenomegaly present INSPECTION: Yes normal to inspection AUSCULTATION: Yes normoactive bowel sounds PALPATION: Yes Soft to palpation and Yes No hepatosplenomegaly present RECTAL EXAM: deferred Extremity: COMMON NORMALS: normal to inspection GENERAL: Yes normal exam except as noted Neuro: COMMON NORMALS: patient oriented x3 SENSORIUM/ORIENTATION: Yes alert, Yes oriented to person, Yes oriented to place and Yes oriented to time CRANIAL NERVES: Yes CN normal except as noted Psych: COMMON NORMALS: mental status grossly normal, Normal thought process present, cooperative, activity/motor behavior normal, denies homicidal ideation and denies suicidal ideation THOUGHT PROCESS: Normal thought process present Skin: COMMON NORMALS: turgor normal SKIN IMAGES (FEMALE):  1. Abrasions 2. Fungal nail and wound to the right great toe 3. Fungal nail and wound to the third toe 4. Bruise 5. Fungal infection to the underside of pannus GENERAL SKIN EXAM: turgor normal Course Vital Signs: Vital signs: Vital Signs Temperature 98.3 F 11/20/24 12:24 Pulse Rate 77 11/20/24 15:30 Respiratory Rate 16 11/20/24 15:30 Blood Pressure 125/63 11/20/24 15:30 Pulse Oximetry 97 11/20/24 15:30 Oxygen Delivery Me thod Room Air 11/20/24 12:24 MDM - Nausea/Vomiting/Diarrhea Medical Decision Making Caridad is a 69-year-old female that presents to the emergency department with generalized weakness, activity intolerance, and multiple falls over the last 2 months. Patient's is at bedside; he reports over the last 2 months while she has had this chronic diarrhea, he has seen her decline further and further. Today she was unable to get up and transfer to the car unassisted. Is concerned that this will continue to worsen. Here in the emergency department she underwent diagnostic and laboratory evaluation. Diagnostic evaluation included a chest x-ray, a right forearm x-ray, a CT head and CT cervical spine. All diagnostic imaging was largely unremarkable. There are no new acute pathologies. Laboratory evaluation included a CBC, CMP, lactate, urinalysis, troponin series and BNP. The CBC reveals no leukocytosis or significant anemia. Hemoglobin is 11 with a hematocrit of 33. Her chemistry panel reveals that she has hypokalemia and this was treated. Lactic acid was within normal limits. Her renal and liver function were within normal limits. Her glucose was 168. Her BNP was 1000 which is mildly elevated but. She has no crackles. She does have some edema in bilateral lower extremities. Her troponin was 39 initially with a 2-hour delta of 35. Her EKG was originally completed at 1340 and revealed a sinus rhythm without ectopy ST elevation or abnormal T wave inversion there was a bit of artifact on it due to patient's anxiety and shaking/tremors. Follow-up EKG was performed at 1532. This reveals a sinus rhythm with a ventricular rate of 76 beats a minute. There is no ectopy, ST elevation or abnormal T wave inversion. Patient denies ever having chest pain or shortness of breath. She did have some dizziness but that seems to have improved with some. She does have diarrhea and had 2 episodes. Unfortunately we have not been able to get a specimen as the stool was discarded. A straight cath was performed and we did get a urinalysis. Urinalysis reveals 4+ bacteria, greater than 100 white blood cells and 2+ leukoesterase with nitrates. She was treated with cephalexin. I did review case with Dr. Torres and ultimately discussed with the hospitalist, Dr Murphy. Patient is going to be admitted for observation and further evaluation. Orders placed for admission Lab Data 11/20/24 13:44 11/20/24 13:44 Radiology Impressions Cervical Spine CT 11/20/24 13:27 IMPRESSION: No acute posttraumatic changes in the cervical spine. COMMENTS: Consistent with the [employer]'s Incidental Findings Committee white paper (J Am Xu Radiol 2015): In patients aged 35 years and older with an incidental thyroid nodule equal to or greater than 1.[address], MRI or extrathyroidal US, further evaluation with dedicated thyroid US is recommended for patients with normal life expectancy and without comorbidities. For smaller nodules without suspicious features, no further evaluation or follow up is recommended. Chest X-Ray 11/20/24 13:27 IMPRESSION: No acute cardiopulmonary process. Head CT 11/20/24 13:27 IMPRESSION: No large territorial infarct or intracranial bleed. Forearm X-Ray 11/20/24 14:04 IMPRESSION: No acute fracture or dislocation. Laboratory Results WBC 7.40 10^3/uL (3.29-11.43) 11/20/24 13:44 RBC 3.82 10^6/uL (3.85-5.65) L 11/20/24 13:44 Hgb 11.00 g/dL (11.27-16.99) L 11/20/24 13:44 Hct 33.5 % (36-47) L 11/20/24 13:44 MCV 87.7 fl (85-98) 11/20/24 13:44 MCH 28.8 pg (27-33) 11/20/24 13:44 MCHC 32.8 g/dL (30-55) 11/20/24 13:44 RDW 13.5 % (12.1-15.1) 11/20/24 13:44 Plt Count 234 10^3/cmm (157-399) 11/20/24 13:44 MPV 9.8 fL (7.4-10.4) 11/20/24 13:44 Neut % (Auto) 70.0 % 11/20/24 13:44 Lymph % (Auto) 19.2 % 11/20/24 13:44 Ocean % (Auto) 9.6 % 11/20/24 13:44 Eos % (Auto) 0.3 % 11/20/24 13:44 Baso % (Auto) 0.5 % 11/20/24 13:44 Neut # (Auto) 5.18 10^3/uL (1.8-7.7) 11/20/24 13:44 Lymph # (Auto) 1.4 10^3/uL (0.8-4.8) 11/20/24 13:44 Ocean # (Auto) 0.7 10^3/uL (0.2-0.9) 11/20/24 13:44 Eos # (Auto) 0.0 10^3/uL (0.0-0.8) 11/20/24 13:44 Baso # (Auto) 0.0 10^3/uL (0.0-0.1) 11/20/24 13:44 Nucleated RBC % (auto) 0 % 11/20/24 13:44 Nucleated RBCs # 0.0 /100WBC 11/20/24 13:44 Sodium 142 mmol/L (136-145) 11/20/24 13:44 Potassium 3.0 mmol/L (3.5-5.1) L 11/20/24 13:44 Chloride 101 mmol/L (98-107) 11/20/24 13:44 Carbon Dioxide 30 mmol/L (22-29) H 11/20/24 13:44 Anion Gap 14.0 (5-19) 11/20/24 13:44 BUN 9 mg/dL (8-23) 11/20/24 13:44 Creatinine 0.5 mg/dL (0.5-0.9) 11/20/24 13:44 GFR Calculation 122.0 mL/min (90-130) 11/20/24 13:44 Glucose 168 mg/dL (65-115) H 11/20/24 13:44 POC Glucose 92 mg/dL (70-110) 11/20/24 15:39 Calculated Osmolality 297 mOsm/kg (285-295) H 11/20/24 13:44 Lactic Acid 1.0 mmol/L (0.5-2.2) 11/20/24 13:44 Calcium 9.0 mg/dL (8.5-10.5) 11/20/24 13:44 Total Bilirubin 0.4 mg/dL (0.15-1.2) 11/20/24 13:44 AST 36 U/L (0-32) H 11/20/24 13:44 ALT 30 U/L (0-33) 11/20/24 13:44 Alkaline Phosphatase 110 U/L (35-105) H 11/20/24 13:44 Troponin T Baseline 39 ng/L (0-10) H 11/20/24 13:44 Troponin T 120 Minute 33.87 ng/L (0-10) H 11/20/24 15:49 Delta Troponin T -5.13 ABS# (0-10) L 11/20/24 15:49 NT-Pro-B Natriuret Pep 1080 pg/mL (0-125) H 11/20/24 13:44 Total Protein 5.9 g/dL (6.6-8.7) L 11/20/24 13:44 Albumin 3.7 g/dL (3.5-5.2) 11/20/24 13:44 Globulin 2.2 g/dL (1.3-4.6) 11/20/24 13:44 Lipase 19 U/L (13-60) 11/20/24 13:44 Urine Color Yellow (Yellow) 11/20/24 14:59 Urine Appearance Cloudy (CLEAR) A 11/20/24 14:59 Urine pH 7.0 (5-7) 11/20/24 14:59 Ur Specific Jay 1.021 (1.005-1.030) 11/20/24 14:59 Urine Protein Trace (Negative) A 11/20/24 14:59 Urine Glucose (UA) Negative (Normal) 11/20/24 14:59 Urine Ketones Negative (Negative) 11/20/24 14:59 Urine Blood Negative (Negative) 11/20/24 14:59 Urine Nitrate Positive (Negative) A 11/20/24 14:59 Urine Bilirubin Negative (Negative) 11/20/24 14:59 Urine Urobilinogen 0.2 mg/dL (Negative) 11/20/24 14:59 Ur Leukocyte Esterase 2+ (Negative) A 11/20/24 14:59 Urine RBC 0-2 /hpf (0-2) 11/20/24 14:59 Urine WBC >100 /hpf (0-5) H 11/20/24 14:59 Ur Squamous Epith Cells 0-5 /hpf (0-5) 11/20/24 14:59 Amorphous Sediment Not Reportable 11/20/24 14:59 Urine Bacteria 4+ /hpf (NONE) H 11/20/24 14:59 Hyaline Casts 4.95 /lpf 11/20/24 14:59 Coronavirus (PCR) Negative (Negative) 11/20/24 14:50 Influenza A (PCR) Negative (Negative) 11/20/24 14:50 Influenza Type B (PCR) Negative (Negative) 11/20/24 14:50 RSV (PCR) Negative (Negative) 11/20/24 14:50 All radiology interpretation(s) finalized by discharge Discharge Plan Discharge Patient Disposition: Admitted As Inpatient Clinical Impression: Diarrhea, Acute hypokalemia, Urinary tract infection, Multiple falls, Generalized muscle weakness, Activity intolerance, Elevated troponin Condition: Stable Coding Level of Care Code ED Management Trainee for Garfield Marquez
[2024-11-20] MEDS: sodium chloride 0.9% 1,000 ML 999 ML IV (13:59)
--- NOTE | 2024-11-20 14:04 | XRR_ITS ---
PROCEDURE INFORMATION: Exam: XR Right Forearm Exam date and time: 11/20/2024 2:38 PM Age: 69 years old Clinical indication: Injury or trauma; Fall; Blunt trauma (contusions or hematomas); Arm, lower; Right; Additional info: Fall, abrasion TECHNIQUE: Imaging protocol: Radiologic exam of the right forearm. Views: 2 views. COMPARISON: No relevant prior studies available. FINDINGS: Bones/joints: Chondrocalcinosis of the elbow joint. Demineralization of the visualized bones, limiting sensitivity for nondisplaced fractures. 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 Moderate degenerative disease of the elbow joint. Soft tissues: Normal. XR/XR forearm RT 2V [id number] IMPRESSION: No acute fracture or dislocation.
[2024-11-20 14:08] LABS: Basophils % 0.5 %; Eosinophils % 0.3 %; Hematocrit 33.5 % (36-47); Lymphocytes # 1.4 10^3/uL (0.8-4.8); Lymphocytes % 19.2 %; Mean Corpuscular HGB Conc 32.8 g/dL (30-55); Mean Corpuscular Hemoglobin 28.8 pg (27-33); Mean Corpuscular Volume 87.7 fl (85-98); Mean Platelet Volume 9.8 fL (7.4-10.4); Monocytes # 0.7 10^3/uL (0.2-0.9); Monocytes % 9.6 %; Neutrophils # 5.18 10^3/uL (1.8-7.7); Nucleated Red Blood Cells % 0 %; Platelet Count 234 10^3/cmm (157-399); Red Blood Count 3.82 10^6/uL (3.85-5.65); Red Cell Distribution Width 13.5 % (12.1-15.1)
[2024-11-20 14:30] LABS: Troponin(5th) Baseline 39 ng/L (0-10)
[2024-11-20 14:39] LABS: Alanine Aminotransferase 30 U/L (0-33); Albumin Level 3.7 g/dL (3.5-5.2); Alkaline Phosphatase 110 U/L (35-105); Aspartate Amino Transferase 36 U/L (0-32); Blood Urea Nitrogen 9 mg/dL (8-23); Carbon Dioxide 30 mmol/L (22-29); Chloride 101 mmol/L (98-107); Creatinine Clr Calc Pharmacy 53.8773; Globulin 2.2 g/dL (1.3-4.6); Glucose 168 mg/dL (65-115); Lipase 19 U/L (13-60); NT Pro B Type Natriuretic Pept 1080 pg/mL (0-125); Osmolality Calculated 297 mOsm/kg (285-295); Sodium 142 mmol/L (136-145); Total Bilirubin 0.4 mg/dL (0.15-1.2); Total Protein 5.9 g/dL (6.6-8.7)
[2024-11-20 15:15] LABS: Bilirubin Urine Negative (Negative); Blood Urine Negative (Negative); Glucose Urine UA Negative (Normal); Ketones Urine Negative (Negative); Leukocyte Esterase Urine 2+ (Negative); Nitrate Urine Positive (Negative); Protein Urine Trace (Negative); Specific Gravity, Urine 1.021 (1.005-1.030); Urine Appearance Cloudy (CLEAR); Urine Color Yellow (Yellow); Urobilinogen Urine 0.2 mg/dL (Negative)
[2024-11-20 15:20] LABS: Add Urine Microscopic? YES; Bacteria Urine 4+ /hpf; Hyaline Casts Urine 4.95 /lpf; RBC Urine 0-2 /hpf (0-2); Squamous Epithelial Cell Urine 0-5 /hpf (0-5); WBC Urine >100 /hpf (0-5)
--- NOTE | 2024-11-20 15:29 | ECG_ITS ---
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 Measurements Intervals [place] Rate: 76 P: 55 MT: 160 QRS: 14 QRSD: 84 T: 67 QT: 348 QTc: 393 Interpretive Statements SINUS RHYTHM NONSPECIFIC T-WAVE ABNORMALITY Compared to ECG 11/20/2024 13:40:30 No significant changes Electronically Signed On 11-20-2024 18:51:30 [employer]CIAL [employer] by Shi Johnson M.D. [email or web address]
[2024-11-20 15:31] LABS: UA Slide Review UA Slide Review Perf
[2024-11-20 15:32] LABS: Add Urine Culture? Yes
[2024-11-20 15:42] LABS: Glucose Point of Care 92 mg/dL (70-110)
[2024-11-20 15:51] LABS: Influenza A NEGATIVE (Negative); Influenza B NEGATIVE (Negative); Respiratory Syncytial Virus Ce NEGATIVE (Negative); SARS-CoV-2 PCR NEGATIVE (Negative)
[2024-11-20 16:10] LABS: Troponin 5 2HR 33.87 ng/L (0-10)
[2024-11-20] MEDS: cephALEXin 500 mg Capsule PO (16:20)
[2024-11-20] MEDS: potassium chloride ER 20 mEq Tablet 40 MEQ PO (16:21)
[2024-11-20 16:34] LABS: Troponin 5 2HR Delta -5.13 ABS# (0-10)
--- NOTE | 2024-11-20 19:23 | PM.HP ---
Providers/Chief Complaint Admitting Physician: Carl Murphy Primary Care Provider: Kumar Machado MD Chief Complaint: Dizzy, Weak History of Present Illness 69-year-old female with past medical history significant for heart murmur, chronic bilateral lower extremity edema, diabetes mellitus,Hypertension, dyslipidemia, major depressive disorder, gastroesophageal reflux disease, osteoporosis, and chronic diarrhea for the past two months who presented to the hospital with generalized weakness.. The diarrhea started suddenly without any apparent trigger such as antibiotics. Initially, the diarrhea was associated with a lot of gas and uncertainty about whether to pass gas or have a bowel movement. The diarrhea has been worsening lately, occurring after eating, especially in the past few days. The stools are loose but not watery, and the frequency is unclear but seems to be after every meal. There is no associated abdominal bloating or cramping now. Yesterday, the diarrhea was particularly bad, with stool gushing out before making it to the bathroom. The stools have been black in color, which may be related to iron supplementation. There is no visible blood in the stools. The patient has also been experiencing increasing weakness over the past few days, with difficulty getting around. A few days ago, the patient got up from her lounger and fell against a woodpile after taking a few steps, scratching her right forearm. The patient gets lightheaded and dizzy when getting up quickly. There have been no episodes of syncope. The patient has also noted swelling and redness in the legs, which is a new development over the past week since stopping Lasix (furosemide). The patient normally wears compression socks but has not been wearing them recently. The patient takes insulin (Lantus 16 units), metformin, glipizide (50 mg as needed for high blood sugars), and lisinopril. The patient was previously on a higher dose of Lantus but has been experiencing low blood sugars in the morning before drinking coffee with cream, which causes the blood sugar to rise. The patient has lost a significant amount of weight, currently weighing 137 pounds. Has had a very poor appetite as well in the past few weeks. The patient had a colonoscopy a long time ago but has not had one recently. The patient saw their primary care provider, Dr. Benito, a couple of weeks ago, who recommended eating more toast and rice for the diarrhea. The patient also has an upcoming appointment for a venous ultrasound of the legs on the . Her laboratory workup in emergency room showed a WBC of 7.4, hemoglobin 11, hematocrit 33.5 and a platelet count of 234. Sodium 142, potassium 3.0, chloride 101, bicarb 30, BUN 9 and creatinine of 0.5. Lactic acid of 1.0. AST of 36, ALT of 30 and alkaline phosphatase of 110. ProB RADIOLOGIST DIAGNOSTIC was elevated at 1080. Troponin T baseline of 39 with a repeat after 120 minutes of 33. Urinalysis showed positive nitrites, 2+ leukocyte esterase and over 100 wbcs. Also noted 4+ bacteria. Influenza a , COVID-19 and RSV were negative.Imaging studies included a head CT which did not show any acute abnormality.CT cervical spine which was also negative. Forearm x-ray also negative.Chest x-ray did not show any acute cardiopulmonary abnormality.In ER patient was given Keflex 500 mg p.o. x1, 40 mEq of KCl and a L bolus of normal saline. Review of Systems General: Reports: 10 or more systems reviewed and unremarkable except in HPI and below Medications/Allergies Home Medications ?Medication ?Instructions ?Recorded ?Confirmed ?Last Taken ?Type flash glucose scanning reader #9 ea 01/09/23 11/20/24 Unknown Rx (MD.[employer] [place]) ferrous gluconate 236 mg (27 mg 236 mg PO DAILY 07/27/24 11/20/24 11/20/24 History iron) tablet potassium chloride 10 mEq 10 meq PO DAILY #90 tabs 07/28/24 11/20/24 11/20/24 Rx tablet,extended release torsemide 20 mg tablet 20 mg PO QAM #90 tabs 07/28/24 11/20/24 11/20/24 Rx Diabetic Shoes #1 ea 08/24/24 11/20/24 Unknown Rx pantoprazole 40 mg tablet,delayed 40 mg PO DAILY #90 tabs 09/09/24 11/20/24 11/20/24 Rx release lisinopril 10 mg tablet 10 mg PO DAILY #60 tabs 09/23/24 11/20/24 11/20/24 Rx bupropion HCl 150 mg 24 hr tablet, 150 mg PO QAM #90 tabs 09/27/24 11/20/24 11/20/24 Rx extended release (Wellbutrin XL) flash glucose sensor ([place] #3 ea 11/07/24 11/20/24 Unknown Rx Jam 2 Sensor kit) acarbose 100 mg tablet 100 mg PO TID 11/20/24 11/20/24 11/20/24 History alendronate 70 mg tablet 70 mg PO Q7D 11/20/24 11/20/24 11/14/24 History atorvastatin 80 mg tablet 80 mg PO BEDTIME 11/20/24 11/20/24 11/19/24 History glipizide 5 mg tablet 5 mg PO TID PRN bs 11/20/24 11/20/24 Unknown History insulin glargine 100 unit/mL (3 See Rx Instructions .Route .COMPLEX 11/20/24 11/20/24 11/20/24 History mL) subcutaneous pen (Lantus Solostar U-100 Insulin) vitamin A-vitamin C-vit E-min 1 tab PO DAILY 11/20/24 11/20/24 11/20/24 History tablet (Ocutabs tablet) Allergies Allergy/AdvReac Type Severity Reaction Status Date / Time No Known Allergies Allergy Verified 11/17/24 15:53 PFSH Acute PFSH: Medical History PRASAD (iron deficiency anemia) Venous stasis dermatitis Osteoporosis GERD (gastroesophageal reflux disease) Osteoarthritis Depression Dyslipidemia Type II diabetes mellitus with hypoglycemia HTN (hypertension) Facial pain Hearing loss Cerumen impaction Surgical History H/O colonoscopy History of hysterectomy H/O knee surgery Hx laparoscopic cholecystectomy H/O foot surgery H/O eye surgery Bilateral cataracts Family History Father Cancer Mother Cancer Other Diabetes Social History Smoking and tobacco/nicotine status: former use of tobacco/nicotine Quit status (tobacco/nicotine): has quit using Year quit tobacco: 2013 Alcohol intake: current Alcohol type: beer Vitals/I&O/Wt Last Vital Signs Temp 98.3 F 11/20/24 12:24 Pulse 86 11/20/24 18:13 Resp 13 02/16/25 18:00 BP 124/70 11/20/24 18:13 Pulse Ox 97 11/20/24 18:13 O2 Del Method Room Air 11/20/24 18:34 11/20/24 11/20/24 11/20/24 06:59 14:59 22:59 Intake Total 1000 / 1000 Balance 1000 / 1000 Weight last 48 hrs Weight 63.548 kg Weight 62.142 kg Physical Exam Narrative: - General: appears weak and fatigued - Cardiovascular: Regular rate rhythm - Respiratory: nonlabored respiration - Gastrointestinal: Abdomen per slightly distended, mild generalized tenderness - Genitourinary: deferred - Musculoskeletal: 2-3+ pitting edema in bilateral lower extremities, - Integumentary: Wound on right forearm from recent fall, no surrounding erythema - Neurological: moving all extremities, gait not assessed. Data 11/20/24 13:44 11/20/24 13:44 A&P Assessment and plan (1) Diarrhea: (2) Elevated troponin: (3) Acute hypokalemia: (4) Urinary tract infection: (5) Multiple falls: (6) Generalized muscle weakness: Plan Diarrhea - Chronic diarrhea for the past two months, worsening in the past few days, with loose, black stools occurring after meals. No associated abdominal pain, bloating, or visible blood in the stools. - occult blood was negative. Differential Diagnosis: 1. Iron supplementation causing black stools. 2. Malabsorptive disorder such as celiac disease or inflammatory bowel disease. Plan: 1. Obtain stool studies to evaluate for infectious causes, fat malabsorption. 2. Consider upper endoscopy and colonoscopy if symptoms persist or worsen. Weakness and Falls - Increasing weakness and falls over the past few days, with a recent fall resulting in a right forearm abrasion. Associated lightheadedness and dizziness on standing.Etiology multifactorial. Differential Diagnosis: 1. Dehydration and orthostatic hypotension secondary to diarrhea and decreased oral intake. 2. Medication side effects, particularly from insulin and sulfonylureas. Plan: 1. Check orthostatic vital signs 2. Fall precautions 3. Compression once venous dopplers are reported and negative 4. Physical therapy and occupational therapy evaluation consult Bilateral Lower Extremity Edema - 2-3+ pitting edema in the bilateral lower extremities. Recent discontinuation of Lasix (furosemide) one week ago. Previously wearing compression stocking which she did not wear today. Plan: 1. Obtain venous ultrasound of the bilateral lower extremities to evaluate for deep vein thrombosis. 2. If no evidence of DVT, resume compression stockings and consider restarting Lasix (furosemide). 3. Encourage elevation of the legs when sitting or lying down. 4. Echo ordered as well. Diabetes Mellitus Type 2 - History of diabetes with recent hypoglycemic episodes in the morning on insulin. Following with Dr. Callaway Plan: 1. Sliding scale insulin 2. Hold oral meds 3. QACHS checks 4. Gradually titrate insulin as need Hypertension - History of hypertension, currently on lisinopril. Plan: 1. Monitor blood pressure closely and adjust medications as needed. Urinary Tract Infection - Recent diagnosis of urinary tract infection, currently on antibiotics. Plan: 1. Continue current antibiotic course and monitor for resolution of symptoms. 2. Obtain urine culture results and adjust antibiotics as needed based on sensitivities. Heart Murmur now with + troponin - History of a heart murmur. Plan: 1. Obtain echocardiogram 2. Consider cardiology consultation for further evaluation and management based on echo findings. Weight Loss - Significant unintentional weight loss, current weight 137 pounds. Plan: 1. Age appropriate malignancy work up 2. Dining Room Cashier consult Dvt ppx - Lovenox PDMP PDMP Reviewed: Not Reviewed Attestations Medical Necessity Statement*: Patient require less than 2 midnight stay in hospital for evaluation and treatment of above Coding Level of Care Code Acute Code for Chg Fwd Diagnoses Diarrhea R19.7 Elevated troponin R79.89 Acute hypokalemia E87.6 Urinary tract infection N39.0 Multiple falls R29.6 Generalized muscle weakness M62.81
--- NOTE | 2024-11-20 19:32 | CTR_ITS ---
PROCEDURE INFORMATION: Exam: CT Abdomen And Pelvis With Contrast Exam date and time: 11/21/2024 12:32 AM Age: 69 years old Clinical indication: Abdominal pain; Generalized; Prior surgery; Surgery date: 6+ months; Surgery type: Gb; Diffuse abd pain with diarrhea. Positive for UTI. ; Additional info: Abdominal pain, UTI, chronic diarrhea TECHNIQUE: Imaging protocol: Computed tomography of the abdomen and pelvis with contrast. Radiation optimization: All CT scans at this facility use at least one of these dose optimization techniques: automated exposure control; mA and/or kV adjustment per patient size (includes targeted exams where dose is matched to clinical indication); or iterative reconstruction. Contrast material: OMNI 350; Contrast volume: 80 ml; Contrast route: INTRAVENOUS (IV); COMPARISON: CT abdomen wo/w con [id number] 11/06/2020 8:51 AM RADIATION DOSE METRICS: Total DLP (mGy-cm): 556.43 FINDINGS: Lungs: Mild dependent atelectasis. Right middle lobe calcified granuloma. Coronary arteries: Coronary artery calcification. Liver: Hepatic calcified granulomata. Otherwise unremarkable. Gallbladder and biliary ducts: Prior cholecystectomy without biliary ductal dilatation. Pancreas: Normal. No ductal dilation. Spleen: No splenomegaly. Calcified granulomata. Adrenal glands: Normal. No mass. Kidneys and ureters: Slight symmetric perirenal fat stranding is likely age related. Otherwise unremarkable. Stomach and bowel: No bowel dilatation to suggest obstruction. Fluid within multiple small bowel loops and there is liquid stool/fluid throughout the colon to the rectum. Appendix: No evidence of appendicitis. Intraperitoneal space: Unremarkable. No free air. No significant fluid collection. Vasculature: Moderate systemic atherosclerosis without abdominal aortic aneurysm. Lymph nodes: Unremarkable. No enlarged lymph nodes. Urinary bladder: Unremarkable as visualized. Reproductive: The uterus is surgically absent. Bones/joints: Diffuse bony demineralization without acute fracture. Degenerative changes along the imaged axial and proximal appendicular skeletal system with stable mild grade 1 anterolisthesis of L4 on L5 in the setting of bilateral hypertrophic facet arthrosis. Soft tissues: Left ventral abdominal wall subcutaneous air lucency likely indicates recent injection. Mild bilateral body wall and upper thigh subcutaneous edema. CT/CT abdomen pelvis w con* [id number] IMPRESSION: 1. Liquid contents in the small and large bowel compatible with diarrheal illness. 2. Additional chronic and incidental findings as above.
[2024-11-20 20:05] LABS: Troponin 5 6HR 34.52 ng/L (0-10)
[2024-11-20 20:07] LABS: Troponin 5 6HR Delta -4.48 ng/L (0-12)
[2024-11-20] MEDS: enoxaparin 40 mg/0.4 mL Syringe SUBCUT (20:13)
[2024-11-20] MEDS: atorvastatin 40 mg Tablet 80 MG PO (20:13)
[2024-11-20 20:26] LABS: Glucose Point of Care 157 mg/dL (70-110)
--- NOTE | 2024-11-20 21:55 | ECG_ITS ---
Impliant Test Date: 2024-11-20 Pat Name: Caridad Yao Department: Room: 266 Gender: Female Hotel Administrative Assistant: : [id number] Requested By: Floresita Gibson Order Number: [id number] Nimisha MD: Shi Johnson M.D. Measurements Intervals Gordon Rate: 76 P: 20 MS: 162 QRS: -5 QRSD: 89 T: 68 QT: 392 QTc: 442 Interpretive Statements SINUS RHYTHM NONSPECIFIC ST & T-WAVE ABNORMALITY Compared to ECG 11/20/2024 15:32:17 No significant changes Electronically Signed On 11-21-2024 11:27:41 SERVICE [employer] BUS CLEAN[employer] by Shi Johnson M.D. [email or web address]
[2024-11-21] VITALS (7 sets, daily range): BP systolic 98–131; BP diastolic 55–74; PULSE 71–81; RESP 16–18; TEMP 36.7–36.9; O2SAT 92–97; BMI 26.4
[2024-11-21] MEDS: iohexol 350 mg/mL 500 mL Btl (per mL) IV (00:35)
[2024-11-21] MEDS: acetaminophen 325 mg Tablet 650 MG PO (01:03)
[2024-11-21 04:35] LABS: Basophils % 0.4 %; Eosinophils # 0.1 10^3/uL (0.0-0.8); Eosinophils % 1.2 %; Lymphocytes # 1.6 10^3/uL (0.8-4.8); Lymphocytes % 27.7 %; Mean Corpuscular HGB Conc 31.7 g/dL (30-55); Mean Corpuscular Hemoglobin 28.3 pg (27-33); Mean Corpuscular Volume 89.2 fl (85-98); Mean Platelet Volume 10.8 fL (7.4-10.4); Monocytes # 0.6 10^3/uL (0.2-0.9); Monocytes % 10.1 %; Neutrophils # 3.43 10^3/uL (1.8-7.7); Neutrophils % 60.4 %; Nucleated Red Blood Cells % 0 %; Platelet Count 187 10^3/cmm (157-399); Red Blood Count 3.25 10^6/uL (3.85-5.65); Red Cell Distribution Width 13.5 % (12.1-15.1); White Blood Count 5.67 10^3/uL (3.29-11.43)
[2024-11-21 04:47] LABS: Alanine Aminotransferase 25 U/L (0-33); Albumin Level 3.1 g/dL (3.5-5.2); Alkaline Phosphatase 86 U/L (35-105); Anion Gap 11.5 (5-19); Aspartate Amino Transferase 28 U/L (0-32); Blood Urea Nitrogen 7 mg/dL (8-23); Calcium 8.2 mg/dL (8.5-10.5); Carbon Dioxide 27 mmol/L (22-29); Chloride 108 mmol/L (98-107); Creatinine Clr Calc Pharmacy 54.4582; Globulin 1.7 g/dL (1.3-4.6); Glucose 98 mg/dL (65-115); Osmolality Calculated 296 mOsm/kg (285-295); Sodium 144 mmol/L (136-145); Total Bilirubin 0.3 mg/dL (0.15-1.2); Total Protein 4.8 g/dL (6.6-8.7)
[2024-11-21 05:01] LABS: Potassium 2.5 mmol/L (3.5-5.1)
[2024-11-21] MEDS: potassium chloride ER 20 mEq Tablet 40 MEQ PO (06:00)
[2024-11-21] MEDS: buPROPion XL (24 HR) 150 mg Tablet PO (06:01)
[2024-11-21 06:34] LABS: Glucose Point of Care 105 mg/dL (70-110)
[2024-11-21 06:45] LABS: Magnesium 1.6 mg/dL (1.7-2.3)
[2024-11-21] MEDS: pantoprazole DR 40 mg Tablet PO (08:16)
--- NOTE | 2024-11-21 09:02 | PC.CHAP ---
Pastoral Care Encounter/Spiritual Assessment Type of Contact [] Declined orthopedic technician visit [] Patient/Family/Request visit [] Outpatient visit [] Follow-up visit [] Physician referral [] Code/Alert [x] Routine visit [] Staff referral [] Actively dying [] Patient sleeping [] Family support [] [] Out of room [] Palliative care [] [x] Receiving care in room [] Pre-surgical visit [] Trauma [] Long length of stay [] ICU visit [] Other: Relational/Emotional Strength [] Patient feels connected with others/family/visitors/staff [] Distress [] Loneliness/isolation [] Abandonment Spirituality of Patient [] Person of Joceline [] Attends Caodaism of their Joceline [] Believes in Prayer [] Reads Bible or Caodaism materials [] There are Spiritual issues to be addressed Plastic Tile Layer Interventions [x Prayer [] Active listening [] Non-anxious presence [] Spiritual/emotional support [] Crisis/trauma care [] Spiritual counseling [] Bereavement support [] Provided bereavement packet [] Provided Bible/devotional materials [] Provided toy/stuffed animal, coloring book to patient or family member [] Provided Communion [] Anointing/[place] [] Salvation [] Completed spiritual assessment [] Other: Impact on Illness or Injury [] Angry [] Fearful [] Anxious [] Often cries [] Exhaustion [] Unable to work [] Unable to attend catholic [] Unable to walk/stand [] Unable to read [] Unable to drive [] Unable to eat/drink [] Unable to sleep [] Unable to be with family [] Patient intubated [] Other: Summary Time spent with patient
[2024-11-21 11:20] LABS: Glucose Point of Care 263 mg/dL (70-110)
[2024-11-21 12:02] LABS: C.Diff PCR (Lab) NEGATIVE (Negative)
--- NOTE | 2024-11-21 12:42 | P.PN_ITS ---
Subjective 2 Subjective: 69-year-old female with past medical his tory significant for heart murmur, chronic bilateral lower extremity edema, diabetes mellitus,Hypertension, dyslipidemia, major depressive disorder, gastroesophageal reflux disease, osteoporosis, and chronic diarrhea for the past two months who presented to the hospital with generalized weakness.. The diarrhea started suddenly without any apparent trigger such as antibiotics. Initially, the diarrhea was associated with a lot of gas and uncertainty about whether to pass gas or have a bowel movement. The diarrhea has been worsening lately, occurring after eating, especially in the past few days. The stools are loose but not watery, and the frequency is unclear but seems to be after every meal. There is no associated abdominal bloating or cramping now. Yesterday, the diarrhea was particularly bad, with stool gushing out before making it to the bathroom. The stools have been black in color, which may be related to iron supplementation. There is no visible blood in the stools. The patient has also been experiencing increasing weakness over the past few days, with difficulty getting around. A few days ago, the patient got up from her lounger and fell against a woodpile after taking a few steps, scratching her right forearm. The patient gets lightheaded and dizzy when getting up quickly. There have been no episodes of syncope. The patient has also noted swelling and redness in the legs, which is a new development over the past week since stopping Lasix (furosemide). The patient normally wears compression socks but has not been wearing them recently. The patient takes insulin (Lantus 16 units), metformin, glipizide (50 mg as needed for high blood sugars), and lisinopril. The patient was previously on a higher dose of Lantus but has been experiencing low blood sugars in the morning before drinking coffee with cream, which causes the blood sugar to rise. The patient has lost a significant amount of weight, currently weighing 137 pounds. Has had a very poor appetite as well in the past few weeks. The patient had a colonoscopy a long time ago but has not had one recently. The patient saw their primary care provider, Dr. Benito, a couple of weeks ago, who recommended eating more toast and rice for the diarrhea. The patient also has an upcoming appointment for a venous ultrasound of the legs on the . Her laboratory workup in emergency room showed a WBC of 7.4, hemoglobin 11, hematocrit 33.5 and a platelet count of 234. Sodium 142, potassium 3.0, chloride 101, bicarb 30, BUN 9 and creatinine of 0.5. Lactic acid of 1.0. AST of 36, ALT of 30 and alkaline phosphatase of 110. ProB RAISE DRILL OPERATOR was elevated at 1080. Troponin T baseline of 39 with a repeat after 120 minutes of 33. Urinalysis showed positive nitrites, 2+ leukocyte esterase and over 100 wbcs. Also noted 4+ bacteria. Influenza a , COVID-19 and RSV were negative.Imaging studies included a head CT which did not show any acute abnormality.CT cervical spine which was also negative. Forearm x-ray also negative.Chest x-ray did not show any acute cardiopulmonary abnormality.In ER patient was given Keflex 500 mg p.o. x1, 40 mEq of KCl and a L bolus of normal saline. 11/21/2024 - Patient was still feeling very weak, d id not have any new clinical events overnight. Continued to have lower extremity swelling, no diarrhea overnight. Denied chest pain or dyspnea. No nausea or vomiting. Noted to have hypokalemia which was replaced. Vitals/I&O/Wt Last Vital Signs Temp 98.0 F 11/21/24 12:00 Pulse 81 11/21/24 12:00 Resp 16 11/21/24 12:00 BP 108/55 11/21/24 12:00 Pulse Ox 93 11/21/24 12:00 O2 Del Method Room Air 11/21/24 12:00 11/20/24 11/21/24 11/21/24 22:59 06:59 14:59 Intake Total 1240 / 1240 240 / 1480 240 / 240 Balance 1240 / 1240 240 / 1480 240 / 240 Weight last 48 hrs Weight 61.49 kg Weight 63.548 kg Weight 62.142 kg Physical Exam 2 Narrative: - General: appears weak and fatigued - Cardiovascular: Regular rate rhythm - Respiratory: nonlabored respiration - Gastrointestinal: Soft, NT, ND - Genitourinary: deferred - Musculoskeletal: 2-3+ pitting edema in bilateral lower extremities, mild dependent rubra bilaterally - Integumentary: Wound on right forearm from recent fall, no surrounding erythema - Neurological: moving all extremities, gait not assessed. Data 11/21/24 03:09 11/21/24 03:09 Micro: Microbiology 11/21/24 10:45 Stool Lactoferrin - Final Stool 11/20/24 14:59 Urine Culture - Preliminary Urine,Clean Catch Gram Negative Rods A&P Assessment and plan (1) Diarrhea: (2) Elevated troponin: (3) Acute hypokalemia: (4) Urinary tract infection: (5) Multiple falls: (6) Generalized muscle weakness: Plan Hypokalemia - K 2.5 today - KCL 40 MEq PO x 1 overnight Plan: 1. Recheck K and replace as needed Diarrhea - Chronic diarrhea for the past two months, worsening in the past few days, with loose, black stools occurring after meals. No associated abdominal pain, bloating, or visible blood in the stools. - Occult blood was negative. - Stool analysis orders pending. Infectious vs Inflammatory - CT abd/pelvis w/contrast showed diarrheal illness, no additional pathology noted Plan: 1. Follow up on stool studies to evaluate for infectious causes, fat malabsorption.- pending 2. Consider upper endoscopy and colonoscopy if symptoms persist or worsen. Weakness and Falls possible orthostatic - Increasing weakness and falls over the past few days, with a recent fall resulting in a right forearm abrasion. Associated lightheadedness and dizziness on standing. Etiology multifactorial. Differential Diagnosis: 1. Dehydration and orthostatic hypotension secondary to diarrhea and decreased oral intake. 2. Medication side effects, particularly from insulin and sulfonylureas. Plan: 1. Check orthostatic vital signs 2. Fall precautions 3. Compression once venous dopplers are reported and negative - pending 4. Physical therapy and occupational therapy evaluation consult Bilateral Lower Extremity Edema - 2-3+ pitting edema in the bilateral lower extremities. Recent discontinuation of Lasix (furosemide) one week ago. Previously wearing compression stocking which she did not wear today. Plan: 1. Follow up on venous ultrasound of the bilateral lower extremities to evaluate for deep vein thrombosis - this is pending 2. If no evidence of DVT, resume compression stockings and consider restarting Lasix (furosemide). 3. Encourage elevation of the legs when sitting or lying down. 4. Echo ordered as well - pending Diabetes Mellitus Type 2 - History of diabetes with recent hypoglycemic episodes in the morning on insulin. Following with Dr. Callaway Plan: 1. Sliding scale insulin 2. Hold oral meds 3. QACHS checks 4. Gradually titrate insulin as need Hypertension - History of hypertension, currently on lisinopril. Plan: 1. Monitor blood pressure closely and adjust medications as needed. Urinary Tract Infection - Recent diagnosis of urinary tract infection, currently on antibiotics. Plan: 1. Continue current antibiotic course and monitor for resolution of symptoms. 2. Follow up on urine culture results and adjust antibiotics as needed based on sensitivities. 3. Given ongoing diarrhea have low threshold to de-escalate abx, will add probiotics. Heart Murmur now with + troponin - History of a heart murmur. Plan: 1. Obtain echocardiogram - pending 2. Consider cardiology consultation for further evaluation and management based on echo findings. Weight Loss - Significant unintentional weight loss, current weight 137 pounds. Plan: 1. Age appropriate malignancy work up 2. Acetylene Gas Compressor consult Dvt ppx - Lovenox PDMP PDMP Reviewed: Not Reviewed Attestations 2 Medical Necessity Statement*: Will require an additional day in hospital for therapy, pending diagnostic test and potassium replacement Coding Level of Care Code Acute Code for Chg Fwd Diagnoses Diarrhea R19.7 Elevated troponin R79.89 Acute hypokalemia E87.6 Urinary tract infection N39.0 Multiple falls R29.6 Generalized muscle weakness M62.81
[2024-11-21] MEDS: insulin lispro 100 unit/1 mL SUBCUT ×2 (13:01→17:11)
[2024-11-21] MEDS: magnesium sulfate premix 1 GM/100 ML PIGGYBACK IV (14:52)
[2024-11-21 16:34] LABS: Glucose Point of Care 225 mg/dL (70-110)
--- NOTE | 2024-11-21 19:32 | USR_ITS ---
PROCEDURE INFORMATION: Exam: US Duplex Lower Extremity Veins, Bilateral Exam date and time: 11/21/2024 3:58 PM Age: 69 years old Clinical indication: Swelling (edema) of limb; Lower extremity, bilateral; Additional info: Increase bilateral le edema TECHNIQUE: Imaging protocol: Real-time duplex ultrasound of the bilateral extremities with 2-D theodore scale, color Doppler flow and spectral waveform analysis including responses to compression and other maneuvers (when performed) with image documentation. Complete exam focused on the lower extremity veins. COMPARISON: CT abdomen pelvis w con* [id number] 11/21/2024 12:32 AM FINDINGS: Right deep veins: Unremarkable. The common femoral, femoral, proximal profunda femoral and popliteal veins are patent without thrombus. Normal Doppler waveforms. Normal compressibility and/or augmentation response. Left deep veins: Unremarkable. The common femoral, femoral, proximal profunda femoral and popliteal veins are patent without thrombus. Normal Doppler waveforms. Normal compressibility and/or augmentation response. Superficial veins: Greater saphenous veins at the saphenofemoral junctions are patent bilaterally without thrombus. Soft tissues: Unremarkable. US/[place] [id number] IMPRESSION: No evidence of deep vein thrombosis.
--- NOTE | 2024-11-21 19:32 | USCV_ITS ---
Caridad Yao Age: 69 Gender: F : 1955 Exam Date: 11/21/2024 16:39 Ordering Phys: Carl Murphy MD Technologist: CT [place] [facility] [place]: edema BP: 127 / 79 HR: 76 Rhythm: Sinus Technical Quality: Adequate MEASUREMENTS (Male / Female) Normal Values 2D ECHO LVOT Diameter 2.0 cm LV Ejection Fraction MOD 4C 51.9 % LV Ejection Fraction MOD 2C 63.3 % LV Ejection Fraction 2C AL 63.1 % LA Diameter 3.4 cm RA Systolic Volume 4C AL 43.8 ml RA Systolic Volume 4C MOD 42.4 ml LA Sys Volume AL 46.9 cm cubed LA Sys Volume Index AL 28.8 cm cubed/m squared Aorta at Sinotubular Diameter 1.9 cm IVC Diameter 1.3 cm M-MODE LA Ao Ratio MM 1.0 AV Cusp Separation MM 2.0 cm DOPPLER AV Peak Velocity 133.0 cm/s LVOT Peak Velocity 107.0 cm/s AV Area Cont Eq vti 3.0 cm squared AV Area Cont Eq pk 2.6 cm squared MV Peak Velocity 109.0 cm/s MV Area PHT 4.6 cm squared Mitral E to A Ratio 1.2 TV Peak Velocity 287.5 cm/s TR Peak Velocity 289.5 cm/s TR Peak Gradient 33.5 mmHg TR Mean Velocity 216.0 cm/s TR Mean Gradient 20.4 mmHg TR Velocity Time Integral 72.7 cm TV Peak E Velocity 74.0 cm/s PV Peak Velocity 103.5 cm/s FINDINGS Left Ventricle Normal left ventricular size, systolic function and wall thickness, with no regional wall motion abnormalities. Left ventricular ejection fraction is estimated at 60 %. Grade II/IV diastolic dysfunction, moderately elevated filling pressures. Right Ventricle The right ventricle is normal in size and function. Right Atrium The right atrium is normal in size. Left Atrium Moderately increased left atrial size. Mitral Valve Structurally normal mitral valve without significant stenosis or prolapse. There is trace mitral regurgitation. Aortic Valve Moderate aortic valve calcification. No aortic valve stenosis. Mild to moderate aortic valve regurgitation. Tricuspid Valve Mild tricuspid valve regurgitation. Pulmonic Valve Structurally normal pulmonic valve without significant stenosis. There is no pulmonic regurgitation. Pericardium Normal pericardium without effusion. Aorta Normal ascending aorta dimension. IVC The inferior vena cava appears normal. CONCLUSIONS Normal left ventricular size, systolic function and wall thickness, with no regional wall motion abnormalities. Left ventricular ejection fraction is estimated at 60 %. Grade II/IV diastolic dysfunction, moderately elevated filling pressures. Moderately increased left atrial size. Moderate aortic valve calcification. No aortic valve stenosis. Mild to moderate aortic valve regurgitation. Mild tricuspid valve regurgitation. There is no pericardial effusion. Right atrial pressure is around 5 mm of mercury. Clary Muniz MD (Electronically Signed) Final Date: 21 November 2024 19:58 S
[2024-11-21] MEDS: atorvastatin 40 mg Tablet 80 MG PO (20:24)
[2024-11-21] MEDS: enoxaparin 40 mg/0.4 mL Syringe SUBCUT (20:24)
[2024-11-21] MEDS: cefTRIAXone 1,000 mg SDV 1000 MG IVP (20:24)
[2024-11-21 21:05] LABS: Glucose Point of Care 249 mg/dL (70-110)
[2024-11-22 04:00] VITALS: BP 145/80; PULSE 80; RESP 16; TEMP 36.8; O2SAT 94
[2024-11-22] MEDS: acetaminophen 325 mg Tablet 650 MG PO ×2 (04:55→08:05)
[2024-11-22] MEDS: buPROPion XL (24 HR) 150 mg Tablet PO (04:56)
[2024-11-22 04:58] LABS: Basophils % 0.4 %; Eosinophils # 0.1 10^3/uL (0.0-0.8); Eosinophils % 1.2 %; Hematocrit 32.5 % (36-47); Lymphocytes # 1.6 10^3/uL (0.8-4.8); Lymphocytes % 24.5 %; Mean Corpuscular Hemoglobin 28.6 pg (27-33); Mean Corpuscular Volume 89.3 fl (85-98); Mean Platelet Volume 10.3 fL (7.4-10.4); Monocytes # 0.6 10^3/uL (0.2-0.9); Monocytes % 8.5 %; Neutrophils # 4.36 10^3/uL (1.8-7.7); Neutrophils % 65.1 %; Nucleated Red Blood Cells % 0 %; Platelet Count 209 10^3/cmm (157-399); Red Blood Count 3.64 10^6/uL (3.85-5.65); Red Cell Distribution Width 13.8 % (12.1-15.1)
[2024-11-22 05:18] LABS: Alanine Aminotransferase 30 U/L (0-33); Albumin Level 3.2 g/dL (3.5-5.2); Alkaline Phosphatase 97 U/L (35-105); Anion Gap 13.8 (5-19); Aspartate Amino Transferase 30 U/L (0-32); Blood Urea Nitrogen 8 mg/dL (8-23); Calcium 8.4 mg/dL (8.5-10.5); Carbon Dioxide 27 mmol/L (22-29); Chloride 104 mmol/L (98-107); Creatinine Clr Calc Pharmacy 53.3711; Globulin 2.3 g/dL (1.3-4.6); Glucose 149 mg/dL (65-115); Osmolality Calculated 295 mOsm/kg (285-295); Sodium 142 mmol/L (136-145); Total Bilirubin 0.3 mg/dL (0.15-1.2); Total Protein 5.5 g/dL (6.6-8.7)
[2024-11-22 05:23] LABS: Potassium 2.8 mmol/L (3.5-5.1)
[2024-11-22] MEDS: potassium chloride ER 20 mEq Tablet 40 MEQ PO (06:12)
[2024-11-22 06:22] LABS: Glucose Point of Care 187 mg/dL (70-110)
[2024-11-22 08:00] VITALS: BP 134/60; PULSE 81; RESP 16; TEMP 36.7; O2SAT 93
[2024-11-22] MEDS: insulin lispro 100 unit/1 mL SUBCUT (08:03)
[2024-11-22] MEDS: pantoprazole DR 40 mg Tablet PO (08:03)
--- NOTE | 2024-11-22 09:33 | PC.CHAP ---
Pastoral Care Encounter/Spiritual Assessment Type of Contact [] Declined wind energy technician visit [] Patient/Family/Request visit [] Outpatient visit [] Follow-up visit [] Physician referral [] Code/Alert [x] Routine visit [] Staff referral [] Actively dying [] Patient sleeping [x] Family support [] [] Out of room [] Palliative care [] [] Receiving care in room [] Pre-surgical visit [] Trauma [] Long length of stay [] ICU visit [] Other: Relational/Emotional Strength [x] Patient feels connected with others/family/visitors/staff [x] Distress [] Loneliness/isolation [] Abandonment Spirituality of Patient [x] Person of Joceline [] Attends Anabaptist of their Joceline []x Believes in Prayer [] Reads Bible or Latter Day materials [] There are Spiritual issues to be addressed Supervisor Plastics Interventions [x] Prayer [x] Active listening [x] Non-anxious presence [x] Spiritual/emotional support [] Crisis/trauma care [] Spiritual counseling [] Bereavement support [] Provided bereavement packet [] Provided Bible/devotional materials [] Provided toy/stuffed animal, coloring book to patient or family member [] Provided Communion [] Anointing/[place] [] Salvation [x] Completed spiritual assessment [] Other: Impact on Illness or Injury [] Angry [] Fearful [] Anxious [] Often cries [] Exhaustion [] Unable to work [] Unable to attend rastafari [] Unable to walk/stand [] Unable to read [] Unable to drive [] Unable to eat/drink [] Unable to sleep [] Unable to be with family [] Patient intubated [] Other: Summary Time spent with patient 10 min
[2024-11-22 10:08] LABS: Influenza A NEGATIVE (Negative); Influenza B NEGATIVE (Negative); Respiratory Syncytial Virus Ce NEGATIVE (Negative); SARS-CoV-2 PCR NEGATIVE (Negative)
--- NOTE | 2024-11-22 11:04 | P.DS_ITS ---
Discharge Providers Date of Admission: 11/20/24 17:09 Date of Discharge: November 22, 2024 Attending Provider at Admission: Carl Murphy Attending Provider at Discharge: John Carrillo MD Primary Care Provider: Kumar Machado MD Diagnoses at Discharge Discharge Diagnosis (1) Diarrhea: Status: Acute (2) Elevated troponin: Status: Acute (3) Acute hypokalemia: Status: Acute (4) Urinary tract infection: Status: Acute (5) Multiple falls: Status: Acute (6) Generalized muscle weakness: Status: Acute Reason for Visit Reason for Visit: Dizzy, Weak Brief History: History as per HPI: 69-year-old female with past medical his tory significant for heart murmur, chronic bilateral lower extremity edema, diabetes mellitus,Hypertension, dyslipidemia, major depressive disorder, gastroesophageal reflux disease, osteoporosis, and chronic diarrhea for the past two months who presented to the hospital with generalized weakness.. The diarrhea started suddenly without any apparent trigger such as antibiotics. Initially, the diarrhea was associated with a lot of gas and uncertainty about whether to pass gas or have a bowel movement. The diarrhea has been worsening lately, occurring after eating, especially in the past few days. The stools are loose but not watery, and the frequency is unclear but seems to be after every meal. There is no associated abdominal bloating or cramping now. Yesterday, the diarrhea was particularly bad, with stool gushing out before making it to the bathroom. The stools have been black in color, which may be related to iron supplementation. There is no visible blood in the stools. The patient has also been experiencing increasing weakness over the past few days, with difficulty getting around. A few days ago, the patient got up from her lounger and fell against a woodpile after taking a few steps, scratching her right forearm. The patient gets lightheaded and dizzy when getting up quickly. There have been no episodes of syncope. The patient has also noted swelling and redness in the legs, which is a new development over the past week since stopping Lasix (furosemide). The patient normally wears compression socks but has not been wearing them recently. The patient takes insulin (Lantus 16 units), metformin, glipizide (50 mg as needed for high blood sugars), and lisinopril. The patient was previously on a higher dose of Lantus but has been experiencing low blood sugars in the morning before drinking coffee with cream, which causes the blood sugar to rise. The patient has lost a significant amount of weight, currently weighing 137 pounds. Has had a very poor appetite as well in the past few weeks. The patient had a colonoscopy a long time ago but has not had one recently. The patient saw their primary care provider, Dr. Benito, a couple of weeks ago, who recommended eating more toast and rice for the diarrhea. The patient also has an upcoming appointment for a venous ultrasound of the legs on the . Her laboratory workup in emergency room showed a WBC of 7.4, hemoglobin 11, hematocrit 33.5 and a platelet count of 234. Sodium 142, potassium 3.0, chloride 101, bicarb 30, BUN 9 and creatinine of 0.5. Lactic acid of 1.0. AST of 36, ALT of 30 and alkaline phosphatase of 110. ProB GERMAN TUTOR was elevated at 1080. Troponin T baseline of 39 with a repeat after 120 minutes of 33. Urinalysis showed positive nitrites, 2+ leukocyte esterase and over 100 wbcs. Also noted 4+ bacteria. Influenza a , COVID-19 and RSV were negative.Imaging studies included a head CT which did not show any acute abnormality.CT cervical spine which was also negative. Forearm x-ray also negative.Chest x-ray did not show any acute cardiopulmonary abnormality.In ER patient was given Keflex 500 mg p.o. x1, 40 mEq of KCl and a L bolus of normal saline. Hospital Course Hospital Course Patient was admitted to the hospital further evaluation and management of weakness in setting of chronic diarrhea with hypokalemia. Infectious causes were ruled out with negative C. difficile. Patient worked well with physical therapy. She did have hypokalemia for which was replaced accordingly. Patient's hospitalization was otherwise unremarkable. Medical reconciliation given chronic diarrhea was done and a carbose has been discontinued. Patient has had an EGD and colonoscopy within last 1 year which was reported normal. During hospitalization UA was consistent with UTI. Culture sensitivities appreciated. She is advised to follow-up with facility engineer as an outpatient for further evaluation of chronic diarrhea. While she is waiting for follow-up she is being discharged on oral Imodium as needed along with advised to maintain lactulose free diet. She is to take 20 mg of potassium twice daily with advised to check BMP next 3 days. Discharge plan were discussed detail with patient and patient's at bedside and all the questions were answered. She has been discharged on oral ciprofloxacin and Flagyl which will help with both UTI and diarrhea but other stool studies are awaited. Physical Exam Narrative: - General: AOx3, emotional, - Cardiovascular: Regular rate rhythm - Respiratory: nonlabored respiration - Gastrointestinal: Soft, NT, ND - Genitourinary: deferred - Musculoskeletal: 2-3+ pitting edema in bilateral lower extremities, mild dependent rubra bilaterally - Integumentary: Wound on right forearm from recent fall, no surrounding erythema - Neurological: moving all extremities, gait not assessed. Discharge Data Studies Completed and Pending Completed Studies During Hospitalization Category Date Time Status CT abdomen pelvis w con* [id number] Routine Cat Scan 11/20/24 19:[address] cervical spin wo con* [id number] Stat Cat Scan 11/20/24 13:[address] head wo con* [id number] Stat Cat Scan 11/20/24 13:27 Completed XR chest 2V* [id number] Stat Exams 11/20/24 13:27 Completed XR forearm RT 2V [id number] Stat Exams 11/20/24 14:04 [place] [id number] Routine Ultrasound 11/21/24 19:32 Completed CV. echo complete* [id number] Routine Ultrasound 11/21/24 19:32 Completed Pending at discharge Category Date Time Status Calprotectin Fecal Routine Lab 11/22/24 10:54 Uncollected Complete Blood Count w/Auto AM LABS Lab 11/23/24 04:00 Ordered Comprehensive Metabolic Panel AM LABS Lab 11/23/24 04:00 Ordered Fecal Fat, Qualitative Routine Lab 11/22/24 10:54 Uncollected Stool Culture - Enteric [Salmonella / Shigella / Campy] Lab 11/20/24 14:12 Received Routine Radiology Impressions Cervical Spine CT 11/20/24 13:27 IMPRESSION: No acute posttraumatic changes in the cervical spine. COMMENTS: Consistent with the [place] [employer]'s Incidental Findings Committee white paper (J Am Xu Radiol 2015): In patients aged 35 years and older with an incidental thyroid nodule equal to or greater than 1.[address], MRI or extrathyroidal US, further evaluation with dedicated thyroid US is recommended for patients with normal life expectancy and without comorbidities. For smaller nodules without suspicious features, no further evaluation or follow up is recommended. Chest X-Ray 11/20/24 13:27 IMPRESSION: No acute cardiopulmonary process. Head CT 11/20/24 13:27 IMPRESSION: No large territorial infarct or intracranial bleed. Forearm X-Ray 11/20/24 14:04 IMPRESSION: No acute fracture or dislocation. Abdomen/Pelvis CT 11/20/24 19:32 IMPRESSION: 1. Liquid contents in the small and large bowel compatible with diarrheal illness. 2. Additional chronic and incidental findings as above. Venous Duplex 11/21/24 19:32 IMPRESSION: No evidence of deep vein thrombosis. Microbiology 11/20/24 14:59 Urine,Clean Catch Urine Culture - Final Escherichia coli 11/21/24 10:45 Stool Stool Lactoferrin - Final Laboratory Results WBC 6.70 10^3/uL (3.29-11.43) 11/22/24 04:09 RBC 3.64 10^6/uL (3.85-5.65) L 11/22/24 04:09 Hgb 10.40 g/dL (11.27-16.99) L 11/22/24 04:09 Hct 32.5 % (36-47) L 11/22/24 04:09 MCV 89.3 fl (85-98) 11/22/24 04:09 MCH 28.6 pg (27-33) 11/22/24 04:09 MCHC 32.0 g/dL (30-55) 11/22/24 04:09 RDW 13.8 % (12.1-15.1) 11/22/24 04:09 Plt Count 209 10^3/cmm (157-399) 11/22/24 04:09 MPV 10.3 fL (7.4-10.4) 11/22/24 04:09 Neut % (Auto) 65.1 % 11/22/24 04:09 Lymph % (Auto) 24.5 % 11/22/24 04:09 Bailey % (Auto) 8.5 % 11/22/24 04:09 Eos % (Auto) 1.2 % 11/22/24 04:09 Baso % (Auto) 0.4 % 11/22/24 04:09 Neut # (Auto) 4.36 10^3/uL (1.8-7.7) 11/22/24 04:09 Lymph # (Auto) 1.6 10^3/uL (0.8-4.8) 11/22/24 04:09 Bailey # (Auto) 0.6 10^3/uL (0.2-0.9) 11/22/24 04:09 Eos # (Auto) 0.1 10^3/uL (0.0-0.8) 11/22/24 04:09 Baso # (Auto) 0.0 10^3/uL (0.0-0.1) 11/22/24 04:09 Nucleated RBC % (auto) 0 % 11/22/24 04:09 Nucleated RBCs # 0.0 /100WBC 11/22/24 04:09 Sodium 142 mmol/L (136-145) 11/22/24 04:09 Potassium 2.8 mmol/L (3.5-5.1) L* 11/22/24 04:09 Chloride 104 mmol/L (98-107) 11/22/24 04:09 Carbon Dioxide 27 mmol/L (22-29) 11/22/24 04:09 Anion Gap 13.8 (5-19) 11/22/24 04:09 BUN 8 mg/dL (8-23) 11/22/24 04:09 Creatinine 0.5 mg/dL (0.5-0.9) 11/22/24 04:09 GFR Calculation 122.0 mL/min (90-130) 11/22/24 04:09 Glucose 149 mg/dL (65-115) H 11/22/24 04:09 POC Glucose 187 mg/dL (70-110) H 11/22/24 05:59 Calculated Osmolality 295 mOsm/kg (285-295) 11/22/24 04:09 Lactic Acid 1.0 mmol/L (0.5-2.2) 11/20/24 13:44 Calcium 8.4 mg/dL (8.5-10.5) L 11/22/24 04:09 Magnesium 1.6 mg/dL (1.7-2.3) L 11/21/24 03:09 Total Bilirubin 0.3 mg/dL (0.15-1.2) 11/22/24 04:09 AST 30 U/L (0-32) 11/22/24 04:09 ALT 30 U/L (0-33) 11/22/24 04:09 Alkaline Phosphatase 97 U/L (35-105) 11/22/24 04:09 Troponin T Baseline 39 ng/L (0-10) H 11/20/24 13:44 Troponin T 120 Minute 33.87 ng/L (0-10) H 11/20/24 15:49 Delta Troponin T -5.13 ABS# (0-10) L 11/20/24 15:49 Troponin T Hi Sens 6Hr 34.52 ng/L (0-10) H 11/20/24 19:30 Troponin T Hi Sens 6Hr Delta -4.48 ng/L (0-12) L 11/20/24 19:30 NT-Pro-B Natriuret Pep 1080 pg/mL (0-125) H 11/20/24 13:44 Total Protein 5.5 g/dL (6.6-8.7) L 11/22/24 04:09 Albumin 3.2 g/dL (3.5-5.2) L 11/22/24 04:09 Globulin 2.3 g/dL (1.3-4.6) 11/22/24 04:09 Lipase 19 U/L (13-60) 11/20/24 13:44 Urine Color Yellow (Yellow) 11/20/24 14:59 Urine Appearance Cloudy (CLEAR) A 11/20/24 14:59 Urine pH 7.0 (5-7) 11/20/24 14:59 Ur Specific [place] 1.021 (1.005-1.030) 11/20/24 14:59 Urine Protein Trace (Negative) A 11/20/24 14:59 Urine Glucose (UA) Negative (Normal) 11/20/24 14:59 Urine Ketones Negative (Negative) 11/20/24 14:59 Urine Blood Negative (Negative) 11/20/24 14:59 Urine Nitrate Positive (Negative) A 11/20/24 14:59 Urine Bilirubin Negative (Negative) 11/20/24 14:59 Urine Urobilinogen 0.2 mg/dL (Negative) 11/20/24 14:59 Ur Leukocyte Esterase 2+ (Negative) A 11/20/24 14:59 Urine RBC 0-2 /hpf (0-2) 11/20/24 14:59 Urine WBC >100 /hpf (0-5) H 11/20/24 14:59 Ur Squamous Epith Cells 0-5 /hpf (0-5) 11/20/24 14:59 Amorphous Sediment Not Reportable 11/20/24 14:59 Urine Bacteria 4+ /hpf (NONE) H 11/20/24 14:59 Hyaline Casts 4.95 /lpf 11/20/24 14:59 C. difficile (PCR) Negative (Negative) 11/21/24 10:45 Coronavirus (PCR) Negative (Negative) 11/20/24 14:50 Influenza A (PCR) Negative (Negative) 11/22/24 09:02 Influenza Type B (PCR) Negative (Negative) 11/22/24 09:02 RSV (PCR) Negative (Negative) 11/22/24 09:02 SARS-CoV-2 (PCR) Negative (Negative) 11/22/24 09:02 Vitals Last Vital Signs Temp 98.1 F 11/22/24 08:00 Pulse 81 11/22/24 08:00 Resp 16 11/22/24 08:00 BP 134/60 11/22/24 08:00 Pulse Ox 93 11/22/24 08:00 O2 Del Method Nasal Cannula 11/22/24 08:00 Discharge Plan Discharge Patient Disposition: Xfer SNF Condition: Stable Prescriptions: New loperamide [Anti-Diarrheal (loperamide)] 2 mg tablet 2 mg PO Q6H PRN (Reason: loose stool) Qty: 14 0RF ciprofloxacin HCl 500 mg tablet 500 mg PO Q12H Qty: 10 0RF metronidazole [Flagyl] 375 mg capsule 375 mg PO BID 10 Days Qty: 20 0RF Continued (DME) FreeStyle Jam 2 [place] Misc See Rx Instructions .Route Qty: 9 0RF Rx Instructions: As directed (DME) Diabetic Shoes See Rx Instructions .Route .MEDSUPPLY Qty: 1 0RF Rx Instructions: As directed 3 x insoles (The shoe guys) ferrous gluconate 236 mg (27 mg iron) tablet 236 mg PO DAILY pantoprazole 40 mg tablet,delayed release (DR/EC) 40 mg PO DAILY Qty: 90 1RF lisinopril 10 mg tablet 10 mg PO DAILY Qty: 60 1RF bupropion HCl [Wellbutrin XL] 150 mg tablet extended release 24 hr 150 mg PO QAM Qty: 90 1RF (DME) FreeStyle Jam 2 Sensor Kit See Rx Instructions .ROUTE .COMPLEX Qty: 3 0RF Dose Instruction: USE DIRECTED Rx Instructions: USE DIRECTED Ocutabs Tablet 1 tab PO DAILY atorvastatin 80 mg tablet 80 mg PO BEDTIME alendronate 70 mg tablet 70 mg PO Q7D glipizide 5 mg tablet 5 mg PO TID PRN (Reason: bs) insulin glargine [Lantus Solostar U-100 Insulin] 100 unit/mL (3 mL) insulin pen See Rx Instructions .ROUTE .COMPLEX Rx Instructions: Inject 30 unit subcutaneously in the morning and 28 units at bedtime. Changed potassium chloride 10 mEq tablet extended release 20 meq PO BIDWMEAL Qty: 90 1RF Discontinued torsemide 20 mg tablet 20 mg PO QAM Qty: 90 1RF acarbose 100 mg tablet 100 mg PO TID Discharge Orders: Discharge Order (Routine); Ordered 11/22/24 Ordered By: John Carrillo Referrals: [facility] [Outside] - 2 weeks (Chronic diarrhea We have notified your physician's clinic of the need for a follow-up appointment to be scheduled. If you have not heard from them within the next 2 business days, please call them directly. ) [facility] [place] [Outside] Kumar Machado MD [Primary Care Provider] - Discharge Diet: As Directed Discharge Activity: Resume usual activity and Increase activity as tolerated Patient Instructions: Ciprofloxacin (By mouth), Loperamide (By mouth), Metronidazole (By mouth), Fall Prevention for Older Adults (DC), Weakness (DC), Opioid Safety Activity Restrictions/Additional Instructions: Lactose free diet repeat bmp in 3 days Gastroentrology visit in 2 weeks Discharge Attestations Time Spent in Discharge Care*: greater than 30 min Specific Discharge Activities: educating patient, educating and/or supporting family/caregiver, discussing with pcp/other providers, discussing with watch caser/social workers/dc planners, documenting/other paperwork and evaluating patient/reviewing data Status at Discharge: Cognitive status at discharge: cognitively intact , Behavioral status at discharge: cooperative , Functional status at discharge: uses cane/walker , Overall status at discharge: patient is progressing back to baseline Quality Metrics Clinical Quality Measures [ No reported AMI, CVA or VTE this stay] Coding Level of Care Code 00419 Total time (in minutes) for Discharge: 60 Diagnoses Diarrhea R19.7 Elevated troponin R79.89 Acute hypokalemia E87.6 Urinary tract infection N39.0 Multiple falls R29.6 Generalized muscle weakness M62.81
[2024-11-22] MEDS: loperamide 2 mg Capsule 4 MG PO (11:15)
[2024-11-22] MEDS: potassium chloride ER 20 mEq Tablet 80 MEQ PO (11:15)
[2024-11-22 11:36] LABS: Glucose Point of Care 204 mg/dL (70-110)
[2024-11-22 11:59] VITALS: BP 134/60; PULSE 81; RESP 16; TEMP 36.7; O2SAT 93
== END 2024-11-22 12:20 | disposition skilled nursing facility (03) ==
LOC: ER 16:21 → MEDSURG 18:04
PROVIDERS: Internal Medicine; Admitting Provider Hospitalist; Emergency Provider Nurse Practitioner; PCP Family Medicine; Visit Provider Student in an Organized Health Care Education/Training Program
DX: K52.9 Noninfective gastroenteritis and colitis, unspecified (principal); R79.89 Other specified abnormal findings of blood chemistry; E87.6 Hypokalemia; N39.0 Urinary tract infection, site not specified; R29.6 Repeated falls; M62.81 Muscle weakness (generalized); E11.9 Type 2 diabetes mellitus without complications; I10 Essential (primary) hypertension; E78.5 Hyperlipidemia, unspecified; K21.9 Gastro-esophageal reflux disease without esophagitis; M18.0 Bilateral primary osteoarthritis of first carpometacarpal joints; F32.9 Major depressive disorder, single episode, unspecified; Z79.899 Other long term (current) drug therapy; Z79.4 Long term (current) use of insulin; Z90.710 Acquired absence of both cervix and uterus; Z90.49 Acquired absence of other specified parts of digestive tract; Z87.891 Personal history of nicotine dependence; R60.0 Localized edema; S50.811A Abrasion of right forearm, initial encounter; W19.XXXA Unspecified fall, initial encounter; Z91.81 History of falling; I95.1 Orthostatic hypotension; E86.0 Dehydration; R63.4 Abnormal weight loss; Z68.26 Body mass index [BMI] 26.0-26.9, adult; K92.1 Melena; B35.1 Tinea unguium; B36.8 Other specified superficial mycoses; S91.101A Unspecified open wound of right great toe without damage to nail, initial encounter; S91.104A Unspecified open wound of right lesser toe(s) without damage to nail, initial encounter; I70.0 Atherosclerosis of aorta; I08.1 Rheumatic disorders of both mitral and tricuspid valves; Z11.52 Encounter for screening for COVID-19
CPT/HCPCS: 36415; 36416; 70450; 71046; 72125; 73090; 74177; 80053; 81001; 82962; 83605; 83630; 83690; 83735; 83880; 84132; 84484; 85025; 87045; 87077; 87086; 87186; 87427; 87449; 87493; 87637; 93005; 93306; 93970; 96365; 96372; 96375; 97161; 97167; 97530; 97535; 99285; G0378; J0696; J1650; J1815; J3475; J7030

== ENCOUNTER → 2024-12-21 10:01 | Outpatient (BNVA) | payer MEDICARE, SELFPAY | PROVIDERS: PCP Family Medicine; Visit Provider Podiatrist Foot & Ankle Surgery | DX: E11.42 Type 2 diabetes mellitus with diabetic polyneuropathy (principal); M20.42 Other hammer toe(s) (acquired), left foot; L60.3 Nail dystrophy; G62.9 Polyneuropathy, unspecified; L84 Corns and callosities; Z79.4 Long term (current) use of insulin | CPT/HCPCS: 99213 ==

== ENCOUNTER → 2025-01-04 13:45 | Outpatient (BNVA) | payer MEDICARE, SELFPAY | PROVIDERS: PCP Family Medicine; Visit Provider Family Medicine | DX: E87.6 Hypokalemia (principal); D50.9 Iron deficiency anemia, unspecified; R26.81 Unsteadiness on feet; F33.42 Major depressive disorder, recurrent, in full remission; I10 Essential (primary) hypertension; E78.5 Hyperlipidemia, unspecified; E11.9 Type 2 diabetes mellitus without complications; R60.0 Localized edema | CPT/HCPCS: 80048; 82728; 83550; 85025 ==

== ENCOUNTER → 2025-01-18 09:48 | Outpatient (BNVA) | payer MEDICARE, SELFPAY | PROVIDERS: PCP Family Medicine; Visit Provider Podiatrist Foot & Ankle Surgery | DX: E11.42 Type 2 diabetes mellitus with diabetic polyneuropathy (principal); L60.3 Nail dystrophy; G62.9 Polyneuropathy, unspecified; L84 Corns and callosities; Z79.4 Long term (current) use of insulin | CPT/HCPCS: 11721 ==

== ENCOUNTER 2025-01-23 10:20 | Outpatient (CLI) | payer MEDICARE, SELFPAY ==
[2025-01-23 11:02] LABS: Alanine Aminotransferase 29 U/L (0-33); Alkaline Phosphatase 118 U/L (35-105); Anion Gap 13.9 (5-19); Aspartate Amino Transferase 27 U/L (0-32); Blood Urea Nitrogen 18 mg/dL (8-23); Calcium 8.8 mg/dL (8.5-10.5); Carbon Dioxide 26 mmol/L (22-29); Chloride 102 mmol/L (98-107); Chol HDL Ratio 2.29 mg/dL (0.0-4.40); Cholesterol 133 mg/dL (0-200); Globulin 2.7 g/dL (1.3-4.6); Glomerular Filtration Rate 82.7 mL/min (90-130); Glucose 247 mg/dL (65-115); HDL Cholesterol 58 mg/dL (60-100); LDL Cholesterol Calculated 39 mg/dL (50-129); LDL HDL Ratio 0.67 RATIO (0.00-3.22); Osmolality Calculated 294 mOsm/kg (285-295); Potassium 4.9 mmol/L (3.5-5.1); Sodium 137 mmol/L (136-145); Total Bilirubin 0.4 mg/dL (0.15-1.2); Total Protein 6.7 g/dL (6.6-8.7); Triglycerides 181 mg/dL (0-150)
[2025-01-23 11:07] LABS: Estmated Average Glucose 209; Hemoglobin A1C 8.9 % (4.0-6.0)
[2025-01-23 11:09] LABS: Creatinine Urine, Random 39 mg/dL (28-217); Microalbum Creatinine Ratio Ur 26 mg/dL (0-20); Microalbumin Random Urine 1 ug/dL (0-20)
== END 2025-01-23 10:21 | disposition home or self-care (01) ==
LOC: LAB 01-24 08:07
PROVIDERS: PCP Family Medicine; Visit Provider Internal Medicine
DX: E11.649 Type 2 diabetes mellitus with hypoglycemia without coma (principal); Z79.4 Long term (current) use of insulin; E78.5 Hyperlipidemia, unspecified; R19.7 Diarrhea, unspecified
CPT/HCPCS: 36415; 80053; 80061; 82044; 83036; 87338; 87425

== ENCOUNTER 2025-01-23 10:46 | Outpatient (RCR) | payer MEDICARE, SELFPAY | END 2025-02-01 23:59 | disposition home or self-care (01) | LOC: SPT 10:46 | PROVIDERS: PCP Family Medicine; Visit Provider Family Medicine | DX: R26.81 Unsteadiness on feet (principal); R26.89 Other abnormalities of gait and mobility; R29.6 Repeated falls | CPT/HCPCS: 97110; 97162; 97530 ==

== ENCOUNTER 2025-02-01 09:13 | Outpatient (CLI) | payer MEDICARE, SELFPAY | END 2025-02-01 09:14 | disposition home or self-care (01) | PROVIDERS: PCP Family Medicine; Visit Provider Family Medicine | DX: R19.7 Diarrhea, unspecified (principal) | CPT/HCPCS: 87045; 87177; 87209; 87427; 87449 ==

== ENCOUNTER 2025-02-02 06:30 | Outpatient (RCR) | payer MEDICARE, SELFPAY | END 2025-02-23 13:03 | disposition home or self-care (01) | LOC: SPT 06:30 | PROVIDERS: PCP Family Medicine; Visit Provider Family Medicine | DX: R26.81 Unsteadiness on feet (principal); R26.89 Other abnormalities of gait and mobility; R29.6 Repeated falls | CPT/HCPCS: 97110; 97530 ==

== ENCOUNTER → 2025-02-14 09:00 | Outpatient (BNVA) | payer MEDICARE, SELFPAY | PROVIDERS: PCP Family Medicine; Visit Provider Internal Medicine | DX: E11.649 Type 2 diabetes mellitus with hypoglycemia without coma (principal); Z79.4 Long term (current) use of insulin; E78.5 Hyperlipidemia, unspecified | CPT/HCPCS: 99214 ==